=== PATIENT | female | born 1990 | race Caucasian/White ===

== ENCOUNTER 2017-12-31 10:50 | Emergency (ER) | payer OTHER ==
[2017-12-31 11:08] VITALS: BP 136/90
--- NOTE | 2017-12-31 12:24 | UC ---
UC General HPI - HPI Summary HPI Summary: PATIENT WITH A HISTORY OF LUPUS AND FIBROMYALGIA. MOVE TO [place] 2 WEEKS AGO FROM [place]. HAS AN APPOINTMENT WITH DR. CLEMENTE WITH RHEUMATOLOGY AT THE END OF FEBRUARY. STATES SHE HAS HAD INCREASING PAIN AND FATIGUE SINCE ARRIVING TO [place]. SYMPTOMS ARE SO SEVERE THAT SHE IS UNABLE TO FOCUS AT WORK. DURING THE ENCOUNTER PATIENT IS IN TEARS. STATES DR. CLEMENTE CANNOT SEE HER ANY SOONER AND HIS OFFICE ADVISED HER TO COME HERE. SHE HAS NO FEVER, COUGH, CONGESTION, ABDOMINAL PAIN. - History of Current Complaint Chief Complaint: UCGeneralIllness Stated Complaint: CHILLS, NAUSEA, AND VOMITING Time Seen by Provider: 12/31/17 11:27 Hx Obtained From: Patient Hx Last Menstrual Period: 12/31/17 Onset/Duration: Gradual Onset, Lasting Weeks, Still Present Timing: Constant Onset Severity: Moderate Current Severity: Moderate Pain Intensity: 3 - Allergy/Home Medications Allergies/Adverse Reactions: Allergies Allergy/AdvReac Type Severity Reaction Status Date / Time sulfamethoxazole Allergy Rash Verified 12/31/17 11:08 [From Bactrim] trimethoprim [From Bactrim] Allergy Rash Verified 12/31/17 11:08 Home Medications: Home Medications ARIPiprazole TAB* [Abilify TAB*] 20 mg PO DAILY 12/31/17 [History Confirmed ] Adderall Xr 20 mg Capsule 20 mg PO BID 12/31/17 [History Confirmed 12/31/17] Dextroamphetamine/Amphetamine [Adderall Xr 15 mg Capsule] 30 mg PO DAILY [History Confirmed 12/31/17] Gabapentin CAP(*) [Neurontin 300 CAP(*)] 300 mg PO TID 12/31/17 [History Confirmed 12/31/17] Lyrica CAP(*) 100 mg PO TID 12/31/17 [History Confirmed 12/31/17] PMH/Surg Hx/FS Hx/Imm Hx - Additional Past Medical History Additional PMH: LUPUS, FIBROMYALGIA - Surgical History Surgical History: Yes Surgery Procedure, Year, and Place: spinal steroids for degenerative disc disease - Family History Family History: MS, RA - Social History Alcohol Use: None Substance Use Type: None Smoking Status (MU): Never Smoked Tobacco Review of Systems Constitutional: Fatigue, Other - GENERALIZED PAIN ENT: Negative Respiratory: Negative Cardiovascular: Negative Gastrointestinal: Negative All Other Systems Reviewed And Are Negative: Yes Physical Exam Triage Information Reviewed: Yes Appearance: Well-Nourished, Obese, Other: - PT TEARFUL Vital Signs: Initial Vital Signs Temp 98.2 F 12/31/17 11:03 Pulse 79 12/31/17 11:03 Resp 18 12/31/17 11:03 BP 136/90 12/31/17 11:03 Pulse Ox 100 12/31/17 11:03 Vital Signs Reviewed: Yes Eyes: Positive: Conjunctiva Clear ENT: Positive: Hearing grossly normal, Pharynx normal, TMs normal Neck: Positive: Supple, Nontender, No Lymphadenopathy Respiratory Exam: Normal Cardiovascular Exam: Normal Abdomen Description: Positive: Soft Musculoskeletal: Positive: No Edema Neurological: Positive: Alert Psychological: Positive: Age Appropriate Behavior Skin: Negative: rashes Course/Dx - Course Course Of Treatment: WILL TREAT WITH SHORT BURST OF STEROIDS. ENCOURAGED PT TO CALL DR. CLEMENTE AND GET ON A CANCELLATION LIST. TO ED IF SX WORSEN. - Differential Dx - Multi-Symptom Provider Diagnoses: LUPUS FLARE Discharge - Sign-Out/Discharge Documenting (check all that apply): Patient Departure All imaging exams completed and their final reports reviewed: No Studies - Discharge Plan Condition: Stable Disposition: HOME Prescriptions: predniSONE TAB* [Deltasone TAB*] 50 mg PO DAILY #5 tab Patient Education Materials: Lupus Erythematosus (DC), Autoimmune Disease (ED) Forms: *Work Release Referrals: Rudy Clemente MD [Medical Doctor] - 1 Week Additional Instructions: WILL TREAT YOUR LUPUS FLARE WITH PREDNISONE IN HOPES THAT THIS WILL CALM YOUR SYMPTOMS. FOLLOW-UP WITH DR. CLEMENTE SOON POSSIBLE. IBUPROFEN NEEDED FOR DISCOMFORT. NO SIGN OF INFECTION ON EXAM TODAY. SEEK FOLLOW-UP IF YOU DEVELOP FEVER, COUGH, ABDOMINAL PAIN OR ANY OTHER SYMPTOMS CONCERNING FOR UNDERLYING INFECTION. - Billing Disposition and Condition Condition: STABLE Disposition: Home
== END 2017-12-31 11:56 | disposition home or self-care (01) ==
LOC: UCEAST 10:50
DX: Z88.1 Allergy status to other antibiotic agents (principal); M32.9 Systemic lupus erythematosus, unspecified
CPT/HCPCS: 99202; G0463

== ENCOUNTER 2018-06-01 08:44 | Emergency (ER) | payer OTHER ==
--- OUTSIDE RECORDS SUMMARY | 2018-06-01 09:05 | XMS REPORT | Continuity of Care Document ---
:1990 External Reference #:[id number] Author Name Susannah Sauceda Care Team Providers Name Role Phone Sonali Pro MD Primary Care Physician Unavailable Payers Type Date Identification Numbers Payment Provider Subscriber Policy Number: [id number] [employer] Aakash Bhat PayID: [id number] [address] [place] [address] Advance Directives Description No Information Available Problems Description No Information Family History Date Family Member(s) Problem(s) Comments General Rheumatoid Arthritis Father Autoimmune conditions in her aunts and mother Mother Multiple Sclerosis (MS) Social History Type Date Description Comments Sex Unknown ETOH Use Never used alcohol Tobacco Use Start: Unknown Patient has never smoked Smoking Status Reviewed: 05/07/18 Patient has never smoked Exercise Type/Frequency Does not exercise Exercise Type/Frequency She cannot exercise given her chronic pain Allergies, Adverse Reactions, Alerts Date Description Reaction Status Severity Comments 03/11/2018 Bactrim Active Medications Medication Date Status Form Strength Qnty SIG Indications Ordering Provider Nystatin 05/07 Active Ointment [id number] 15gm use B37.9 ofi t/GM between Osvaldo, the breast [employer] twice a day until symptoms resolved Lidoderm 04/15 Active Patches 5% 30uni 1 apply to ts affected Kallie, area 12 M.D. hours on, 12 hours off Ciprofloxacin HCL 03/19 Active Tablets 250mg 10tab 1 twice a s day for 5 Kallie, days M.D. Diflucan 03/19 Active Tablets 150mg 3tabs take one capsule/ta Kallie, blet daily M.D. by mouth for 3 days for a yeast infection Ondansetron 03/17 Active Tablets 4mg 40tab dissolve Dispers s one tablet Kallie, orally M.D. twice daily as needed for nausea. Benlysta 03/16 Active Solution IV Rec Kallie M.D. Aspirin 81 Low Dose 03/11 Active Chewtabs 81mg 60uni Take one ts capsule/ta Kallie, blet daily M.D. by mouth Meloxicam 03/11 Active Tablets 7.5mg 180ta take one M32.9 bs tab twice Kallie, daily as M.D. needed for pain, avoid other nsaids Cyclobenzaprine HCL Active Tablets Unknown Adderall XR Active Caps ER 30mg 1 by mouth Unknown /0000 24HR every day Abilify Active Tablets 20mg 1 by mouth Unknown /0000 every day Gabapentin Active Capsules 300mg 1 by mouth Unknown /0000 three times a day Trintellix Active Tablets 10mg 1 by mouth Unknown /0000 every day Magnesium Active Tablets 250mg Unknown /0000 Vitamin D Active Tablets 1000Unit by mouth Unknown /0000 everyday Klonopin Active Tablets 1mg tid Turmeric Active Capsules 400mg Unknown /0000 Iron Active Tablets 325(65Fe) 1 by mouth Unknown /0000 mg every day Restoril Active Capsules 15mg once at at Unknown /0000 bedtime for insomnia Lyrica Active Capsules 100mg 90cap Take 1 s Capsule By Kallie, Mouth 3 M.D. Times A Day Zofran Odt 03/16 Hx Tablets 4mg 40tab take one Dispers s capsule/ta Kallie, - blet twice M.D. 03/17 daily mouth as needed for nausea B-12 Hx Tablets 1000mcg Unknown / - 03/11 Velivet Hx Tablets 0.1/0.125 Unknown /0000 /0.15 - -0.025 mg 03/11 Hydroxychloroquine Hx Tablets 200mg take one Unknown tablet by - mouth 04/15 twice day Ibuprofen Hx Tablets 200mg Unknown / - 04/15 Fludrocortisone Hx Tablets 0.1mg 1 by mouth Unknown Acetate 0000 every - morning 03/11 Prazosin HCL Hx Capsules 2mg take 2 Unknown capsules - by mouth 03/11 at bedtime Zofran Hx Tablets 4mg Unknown / - 03/16 Immunizations CPT Code Status Date Vaccine Reaction Lot # [id number] Given 05/07/2018 Pneumococcal Conjugate no immediate reaction [id number] Vaccine 13 Valent For noted Intramuscular Use Vital Signs Date Vital Result Comment 05/07/2018 9:24am Height 65 inches 5'5" Weight 288.38 lb Heart Rate 102 /min BP Systolic Sitting 112 mmHg BP Diastolic Sitting 78 mmHg Pain Level 7 O2 % BldC Oximetry 98 % BMI (Body Mass Index) 48.0 kg/m2 04/15/2018 9:37am Height 65 inches 5'5" Weight 288.50 lb Heart Rate 109 /min BP Systolic Sitting 106 mmHg BP Diastolic Sitting 72 mmHg Pain Level 8 O2 % BldC Oximetry 99 % BMI (Body Mass Index) 48.0 kg/m2 03/11/2018 10:16am Height 65 inches 5'5" Weight 293.25 lb Heart Rate 80 /min BP Systolic Sitting 100 mmHg BP Diastolic Sitting 70 mmHg Respiratory Rate 14 /min Pain Level 8 BMI (Body Mass Index) 48.8 kg/m2 Results Test Date Facility Test Result H/L Range Note Laboratory test 04/16/2018 [facility] Erythrocyte Sed 33 mm/Hr High 0-[address] [place] [address] [phone] Comp Metabolic 04/16/2018 [facility] Sodium 136 mmol/L N 135- [address] [place] [address] [phone] Potassium 3.9 mmol/L N 3.5-5.0 Chloride 103 mmol/L N 101-111 Co2 Carbon Dioxide 28 mmol/L N 22-32 Anion Gap 5 mmol/L N 2-11 Glucose 87 mg/dL N 70-100 Blood Urea Nitrogen 12 mg/dL N 6-24 Creatinine 0.75 mg/dL N 0.51-0.95 BUN/Creatinine Ratio 16.0 N 8-20 Calcium 9.2 mg/dL N 8.6-10.3 Total Protein 6.9 g/dL N 6.4-8.9 Albumin 4.3 g/dL N 3.2-5.2 Globulin 2.6 g/dL N 2-4 Albumin/Globulin Ratio 1.7 N 1-3 Total Bilirubin 0.30 mg/dL N 0.2-1.0 Alkaline Phosphatase 86 U/L N 34-104 Alt 18 U/L N 7-52 Ast 16 U/L N 13-39 Egfr Non- 91.4 >60 Egfr 110.5 >60 1 Laboratory test 04/16/2018 [facility] C Reactive 5.57 mg/L N < 8.[address] [place] [address] [phone] CBC Auto Diff 04/16/2018 [facility] White Blood 6.7 N 3.5- 10.[address] Count 10^3/[place] [address] [phone] Red Blood Count 4.62 10^6/uL N 4.00-5.40 Hemoglobin 13.4 g/dL N 12.0-16.0 Hematocrit 41 % N 35-47 Mean Corpuscular Volume 88 fL N 80-97 Mean Corpuscular Hemoglobin 29 pg N 27-31 Mean Corpuscular HGB Conc 33 g/dL N 31-36 Red Cell Distribution Width 14 % N 10.5-15 Platelet Count 281 10^3/uL N 150-450 Mean Platelet Volume 8.9 fL N 7.4-10.4 Abs Neutrophils 4.3 10^3/uL N 1.5-7.7 Abs Lymphocytes 1.7 10^3/uL N 1.0-4.8 Abs Monocytes 0.5 10^3/uL N 0-0.8 Abs Eosinophils 0.2 10^3/uL N 0-0.6 Abs Basophils 0 10^3/uL N 0-0.2 Abs Nucleated RBC 0 10^3/uL Granulocyte % 63.9 % Lymphocyte % 25.0 % Monocyte % 7.0 % Eosinophil % 3.6 % Basophil % 0.5 % Nucleated Red Blood Cells % 0.1 Comp Metabolic Panel 04/02/2018 [facility] Sodium 136 mmol/L N 135-[address] [place] [address] [phone] Potassium 4.2 mmol/L N 3.5-5.0 Chloride 106 mmol/L N 101-111 Co2 Carbon Dioxide 24 mmol/L N 22-32 Anion Gap 6 mmol/L N 2-11 Glucose 79 mg/dL N 70-100 Blood Urea Nitrogen 15 mg/dL N 6-24 Creatinine 0.75 mg/dL N 0.51-0.95 BUN/Creatinine Ratio 20.0 N 8-20 Calcium 9.1 mg/dL N 8.6-10.3 Total Protein 6.4 g/dL N 6.4-8.9 Albumin 3.9 g/dL N 3.2-5.2 Globulin 2.5 g/dL N 2-4 Albumin/Globulin Ratio 1.6 N 1-3 Total Bilirubin 0.20 mg/dL N 0.2-1.0 Alkaline Phosphatase 79 U/L N 34-104 Alt 17 U/L N 7-52 Ast 17 U/L N 13-39 Egfr Non- 91.4 >60 Egfr 110.5 >60 2 Laboratory test 04/02/2018 [facility] Erythrocyte Sed 31 mm/Hr High 0-[address] [place] [address] [phone] CBC Auto Diff 04/02/2018 [facility] White Blood 7.4 N 3.5- 10.[address] Count 10^3/[place] [address] [phone] Red Blood Count 4.34 10^6/uL N 4.00-5.40 Hemoglobin 12.7 g/dL N 12.0-16.0 Hematocrit 38 % N 35-47 Mean Corpuscular Volume 88 fL N 80-97 Mean Corpuscular Hemoglobin 29 pg N 27-31 Mean Corpuscular HGB Conc 33 g/dL N 31-36 Red Cell Distribution Width 14 % N 10.5-15 Platelet Count 263 10^3/uL N 150-450 Mean Platelet Volume 8.7 fL N 7.4-10.4 Abs Neutrophils 4.5 10^3/uL N 1.5-7.7 Abs Lymphocytes 2.0 10^3/uL N 1.0-4.8 Abs Monocytes 0.6 10^3/uL N 0-0.8 Abs Eosinophils 0.2 10^3/uL N 0-0.6 Abs Basophils 0.1 10^3/uL N 0-0.2 Abs Nucleated RBC 0 10^3/uL Granulocyte % 61.1 % Lymphocyte % 27.5 % Monocyte % 7.6 % Eosinophil % 3.0 % Basophil % 0.8 % Nucleated Red Blood Cells % 0 Laboratory test 04/02/2018 [facility] C Reactive 5.91 mg/L N < 8.[address] [place] [address] [phone] Laboratory test 03/11/2018 [facility] Complement C3 136 mg/dL 75 - [address] [place] [address] [phone] Complement C4 26 mg/dL 14 - 40 4 Erythrocyte Sed Rate 30 mm/Hr High 0-14 5 C Reactive Protein 5.28 mg/L N <8.01 6 Neutrophil Cytoplasmic 03/11/2018 [facility] C-Anca Negative Negative AB [address] [place] [address] [phone] P-Anca Negative Negative 7 Alkaline Phos 03/11/2018 [facility] Alkaline 85 U/L 35 - 104 Isoenzymes [address] [facility] [place] [address] [phone] Alp Liver 1% 70.8 % 27.8-76.3 Alp Liver 1 60.2 IU/L 16.2-70.2 Alp Liver 2% 1.9 % 0.0-8.0 Alp Liver 2 1.6 IU/L 0.0-5.8 Alp Bone % 27.3 % 19.1-67.7 Alp Bone 23.2 IU/L 12.1-42.7 Alp Intestine % 0.0 % 0.0-20.6 Alp Intestine 0.0 IU/L 0.0-11.0 Alp Placental NotPresent 8 CBC Auto Diff 03/11/2018 [facility] White Blood 7.6 10^3/uL N 3.5-10.[address] [place] [address] [phone] Red Blood Count 4.57 10^6/uL N 4.00-5.40 Hemoglobin 13.3 g/dL N 12.0-16.0 Hematocrit 40 % N 35-47 Mean Corpuscular Volume 88 fL N 80-97 Mean Corpuscular Hemoglobin 29 pg N 27-31 Mean Corpuscular HGB Conc 33 g/dL N 31-36 Red Cell Distribution Width 14 % N 10.5-15 Platelet Count 259 10^3/uL N 150-450 Mean Platelet Volume 8.7 fL N 7.4-10.4 Abs Neutrophils 5.4 10^3/uL N 1.5-7.7 Abs Lymphocytes 1.6 10^3/uL N 1.0-4.8 Abs Monocytes 0.5 10^3/uL N 0-0.8 Abs Eosinophils 0.1 10^3/uL N 0-0.6 Abs Basophils 0 10^3/uL N 0-0.2 Abs Nucleated RBC 0 10^3/uL Granulocyte % 71.3 % Lymphocyte % 21.5 % Monocyte % 6.1 % Eosinophil % 0.8 % Basophil % 0.3 % Nucleated Red Blood Cells % 0.1 Comp Metabolic Panel 03/11/2018 [facility] Sodium 139 mmol/L N 135-145 [address] [place] [address] [phone] Potassium 4.0 mmol/L N 3.5-5.0 Chloride 106 mmol/L N 101-111 Co2 Carbon Dioxide 28 mmol/L N 22-32 Anion Gap 5 mmol/L N 2-11 Glucose 73 mg/dL N 70-100 Blood Urea Nitrogen 13 mg/dL N 6-24 Creatinine 0.81 mg/dL N 0.51-0.95 BUN/Creatinine Ratio 16.0 N 8-20 Calcium 9.2 mg/dL N 8.6-10.3 Total Protein 6.4 g/dL N 6.4-8.9 Albumin 4.1 g/dL N 3.2-5.2 Globulin 2.3 g/dL N 2-4 Albumin/Globulin Ratio 1.8 N 1-3 Total Bilirubin 0.20 mg/dL N 0.2-1.0 Alkaline Phosphatase 78 U/L N 34-104 Alt 13 U/L N 7-52 Ast 15 U/L N 13-39 Egfr Non- 83.6 >60 Egfr 101.2 >60 9 Urinalysis Profile 03/11/2018 [facility] Urine Color Yellow [address] [place] [address] [phone] Urine Appearance Cloudy Urine Specific [place] 1.004 Low 1.010-1.030 Urine pH 6.0 N 5-9 Urine Urobilinogen Negative Negative Urine Ketones Negative Negative Urine Protein Negative Negative Urine Leukocytes Trace Abnormal Negative Urine Blood Negative Negative Urine Nitrite Positive Abnormal Negative Urine Bilirubin Negative Negative Urine Glucose Negative Negative Urine White Blood Cell 1+(6-10/hpf) Abnormal Absent Urine Red Blood Cell Absent Absent Urine Bacteria 2+ Abnormal Absent Urine Squamous Epithelial Cell Present Abnormal Absent Laboratory test 03/11/2018 [facility] Mitochondrial AB AMA <0.1 U [address] M2 Igg [place], [place] [id number] [phone] Creatine Kinase(CK) 95 U/L N 10-223 11 T3 Free 3.80 pg/mL N 2.5-3.9 12 Vitamin D Total 25(Oh) 49.2 ng/mL N 20-50 13 Lupus 03/11/2018 [facility] Prothrombin 10.2 sec Abnormal 14 Anticoagulant AB [address] Time(Lac) [place], [place] [id number] [phone] Lac Inr 0.9 Lac Aptt 36 sec 26 - 36 Lac DRVVT Screen Ratio 1.1 ratio 0.0 - 1.1 Lupus Anticoagulant Interpreta See Comment 15 Beta 2 Glycoprotein 03/11/2018 [facility] Beta 2 <9.4 U/mL 16 I Abs [address] [place] [address] [phone] Beta 2 Glycoprotein IgM <9.4 U/mL 17 Urine Culture And 03/11/2018 [facility] Urine SEE RESULT [address] Culture BELOW [place], [place] [address] [phone] Protein 03/11/2018 [facility] Total 6.7 g/dL 6.3 - Electrophoresis [address] Protein(Pep) 7.9 [place], [place] [id number] [phone] Albumin 3.4 g/dL 3.4-4.7 Alpha-1 Globulin 0.2 g/dL 0.1-0.3 Alpha-2 Globulin 0.9 g/dL 0.6-1.0 Beta Globulin 1.0 g/dL 0.7-1.2 Gamma Globulin 1.1 g/dL 0.6-1.6 Albumin/Globulin Ratio 1.02 Impression See Comment 19 1 Because ethnic data is not always readily available, this report includes an eGFR for both -Americans and non- Americans. The National Kidney Disease Education Program (NKDEP) does not endorse the use of the MDRD equation for patients that are not between the ages of 18 and 70, are , have extremes of body size, muscle mass, or nutritional status, or are non- or non-. According to the National Kidney Foundation, irrespective of diagnosis, the stage of the disease is based on the level of kidney function: Stage Description GFR(mL/min/1.73 m(2)) 1 Kidney damage with normal or decreased GFR 90 2 Kidney damage with mild decrease in GFR 60-89 3 Moderate decrease in GFR 30-59 4 Severe decrease in GFR 15-29 5 Kidney failure <15 (or dialysis) 2 Because ethnic data is not always readily available, this report includes an eGFR for both -Americans and non- Americans. The National Kidney Disease Education Program (NKDEP) does not endorse the use of the MDRD equation for patients that are not between the ages of 18 and 70, are , have extremes of body size, muscle mass, or nutritional status, or are non- or non-. According to the National Kidney Foundation, irrespective of diagnosis, the stage of the disease is based on the level of kidney function: Stage Description GFR(mL/min/1.73 m(2)) 1 Kidney damage with normal or decreased GFR 90 2 Kidney damage with mild decrease in GFR 60-89 3 Moderate decrease in GFR 30-59 4 Severe decrease in GFR 15-29 5 Kidney failure <15 (or dialysis) 3 Test Performed by: [address] [place] [address] 4 Test Performed by: [facility] [address] [place] [address] 5 Please check labs this week 6 Please check labs this week 7 Negative for cANCA and pANCA patterns by immunofluorescence. ADDITIONAL INFORMATION This test was developed and its performance characteristics determined by [facility] in a manner consistent with CLIA requirements. This test has not been cleared or approved by the U.S. Food and Drug Administration. Test Performed by: [facility] [address] [id number] 8 REFERENCE VALUE Not present Test Performed by: [facility] - [address] [address] 9 Because ethnic data is not always readily available, this report includes an eGFR for both -Americans and non- Americans. The National Kidney Disease Education Program (NKDEP) does not endorse the use of the MDRD equation for patients that are not between the ages of 18 and 70, are , have extremes of body size, muscle mass, or nutritional status, or are non- or non-. According to the National Kidney Foundation, irrespective of diagnosis, the stage of the disease is based on the level of kidney function: Stage Description GFR(mL/min/1.73 m(2)) 1 Kidney damage with normal or decreased GFR 90 2 Kidney damage with mild decrease in GFR 60-89 3 Moderate decrease in GFR 30-59 4 Severe decrease in GFR 15-29 5 Kidney failure <15 (or dialysis) 10 REFERENCE VALUE <0.1 (Negative) Test Performed by: [facility] [address] [place] [address] 11 Please check labs this week 12 Please check labs this week 13 Please check labs this week 14 REFERENCE VALUE 10.3 - 12.8 15 No evidence of a lupus-like anticoagulant based on results of Prothrombin Time (PT), Activated Partial Thromboplastin Time (APTT), and Dilute Russ[place] Viper Venom Time (DRVVT). Interpretation not reviewed by physician. Test Performed by: [facility] - [address] [address] 16 REFERENCE VALUE <15.0 (Negative) 17 REFERENCE VALUE <15.0 (Negative) Test Performed by: [address] [address] 18 SEE RESULT BELOW Name: AAKASH BHAT : [address]: Rudy Arreguin MD Acct: [id number] Unit: [id number] AGE: 27 Location: LAB Re03/11/18 SEX: F Status: REG REF SPEC: [id number] CANDACE: 03/11/181141 [facility] DR: Rudy Arreguin MD REQ: [id number] RECD: 03/11/18120 STATUS: COMP _ SOURCE: URINE SPDES: ORDERED: Urine Culture Procedure Result Reported Site Urine Culture Final 03/13/18- 0806 ML Organism 1 ESCHERICHIA COLI [place] Count >100,000 (Many) CFU/ML 1. ESCHERICHIA COLI M.I.C. RX --------- ------ Ampicillin 4 S Cefazolin <=4 S Cefepime <=1 S Ceftriaxone <=1 S Ciprofloxacin <=0.25 S Gentamicin <=1 S Levofloxacin <=0.12 S Meropenem <=0.25 S Nitrofurantoin <=16 S Tetracycline <=1 S Pipercillin/Tazobactam <=4 S Trimethoprim/Sulfamethoxazole <=20 S Amoxicillin/Clavulanic Acid <=2 S Aztreonam <=1 S Contact the Microbiology Department for any additional antibiotic reporting. * - Main Lab . END OF REPORT DEPARTMENT OF PATHOLOGY, [address] [place] [address] Atul Merrill M.D. Director [facility] # [id number] RESULT: No apparent monoclonal protein on serum electrophoresis. 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 erythematosus, unspecified R74.8 Abnormal levels of other serum enzymes Z79.899 Other jail (current) drug therapy M79.7 Fibromyalgia Plan of Treatment Future Appointment(s):06/16/2018 10:20 am - Rudy Arrgeuin M.D. at [facility]05/07/2018 - Bela Riley, FNPM32.9 Systemic lupus erythematosus , unspecifiedComments:We discussed that it may take up to 3 month for Benlysta to take effect.We do expect that you will feel a lot better once your condition is under control.For now I recommend a healthy diet and a low grade daily exercise as tolerated.Call the office if any change in your condition.Follow up: keep f/u with Dr Bradley37.9 Candidiasis, unspecifiedNew Medication:Nystatin [id number] Unit/GM - use between the breast twice a day until symptoms resolvedComments:Start using ointment 2x daily. The rash should resolve in a week or so. Please call if this is not the case or if your symptoms worsen.M54.5 Low back painNew Therapy:Physical TherapyComments:I am giving you a set of exercises o do daily to keep your back [id number] Pain in unspecified kneeZ79.899 Other jail (current) drug therapyComments:Please call if have sign or symptoms of infection.Z23 Encounter for immunization
[2018-06-01 11:53] LABS: Urine Appearance Clear; Urine Bacteria Absent (Absent); Urine Bilirubin Negative (Negative); Urine Blood 1+ (Negative); Urine Color Straw; Urine Glucose Negative (Negative); Urine Ketones Negative (Negative); Urine Nitrite Negative (Negative); Urine Protein Negative (Negative); Urine Red Blood Cell Trace(0-2/hpf) (Absent); Urine Specific Gravity 1.004 (1.010-1.030); Urine Squamous Epithelial Cell Present (Absent); Urine Urobilinogen Negative (Negative); Urine White Blood Cell Absent (Absent)
[2018-06-01] MEDS ORDERED: HYDROmorphone INJ1* 1 MG/ML SYRINGE IM ONE (12:10)
--- NOTE | 2018-06-01 12:10 | ED ---
Back Pain - HPI Summary HPI Summary: Pt is a 27 y/o female who presents to the ED c/o back pain. She has had lower back pain since last night, rated 10/10 in severity. Pt has a known bulging disc between L4 and L5, and states the pain feels like its below L5. She reports nerve pain radiating to her upper thighs. She denies any injury to the area, or urinary symptoms. Pt took Meloxicam, Gabapentin, Lyrica, and ASA, and used a Lidoderm patch to the area, but neither relieved her pain. PMHx Lupus. She has used Flexeril in the past with pain relief. Pt has an appointment with Dr. Pro tomorrow. - History of Current Complaint Chief Complaint: EDBackInjuryPain Stated Complaint: BACK PAIN Time Seen by Provider: 06/01/18 11:06 Hx Obtained From: Patient Hx Last Menstrual Period: 04/07/18 Onset/Duration: Sudden Onset, Lasting Days - Last night, Still Present Timing: Constant Back Pain Location: Is Discrete @ - low back Severity Currently: Severe Pain Intensity: 10 Pain Scale Used: 0-10 Numeric Aggravating Symptom(s): Movement Alleviating Symptom(s): Nothing Associated Signs And Symptoms: Positive: Negative Related History: Similar Episode Dx As - bulge between L4 and L5 - Allergies/Home Medications Allergies/Adverse Reactions: Allergies Allergy/AdvReac Type Severity Reaction Status Date / Time sulfamethoxazole Allergy Mild Rash Verified 06/01/18 09:00 [From Bactrim] trimethoprim [From Bactrim] Allergy Mild Rash Verified 06/01/18 09:00 PMH/Surg Hx/FS Hx/Imm Hx Endocrine/Hematology History: Reports: Autoimmune Disease - Lupus Musculoskeletal History: Reports: Hx Back Problems - bulge between L4 and L5 - Cancer History Cancer Type, Location and Year: lupus fibromyalgia - Surgical History Surgery Procedure, Year, and Place: spinal steroids for degenerative disc disease Infectious Disease History: No Infectious Disease History: Denies: Traveled Outside the [place] in Last 30 Days - Family History Known Family History: Positive: Other - Lupus Family History: MS, RA - Social History Alcohol Use: None Hx Substance Use: No Substance Use Type: Reports: None Hx Tobacco Use: No Smoking Status (MU): Never Smoked Tobacco Review of Systems Genitourinary: Negative Positive: Myalgia - low back, radiating to her thighs All Other Systems Reviewed And Are Negative: Yes Physical Exam - Summary Physical Exam Summary: Appearance: Well appearing, no pain distress Skin: warm, dry, reflects adequate perfusion Head/face: normal Eyes: EOMI, MEREDITH ENT: mucous membranes moist Neck: supple, non-tender Respiratory: CTA, breath sounds present Cardiovascular: RRR, pulses symmetrical Abdomen: non-tender, soft Bowel Sounds: present Musculoskeletal: strength/ROM intact, tenderness to right piriformus and right lumbar musculature, Lidoderm patch applied to the area Neuro: sensory motor intact, A&Ox3, 2+ patellar DTRs, nl saddle and LE sensations, nl gait, no incontinence Triage Information Reviewed: Yes Vital Signs On Initial Exam: Initial Vitals Temp Pulse Resp BP Pulse Ox 96.9 F 76 17 129/95 100 06/01/18 08:57 06/01/18 08:57 06/01/18 08:57 06/01/18 08:57 06/01/18 08:57 Vital Signs Reviewed: Yes Diagnostics - Vital Signs Vital Signs Temp Pulse Resp BP Pulse Ox 06/01/18 08:57 96.9 F 76 17 129/95 100 - Laboratory Lab Results: Lab Results 06/01/18 Range/Units 11:25 Urine Color Straw Urine Appearance Clear Urine pH 6.0 (5-9) Ur Specific [place] 1.004 L (1.010-1.030) Urine Protein Negative (Negative) Urine Ketones Negative (Negative) Urine Blood 1+ A (Negative) Urine Nitrate Negative (Negative) Urine Bilirubin Negative (Negative) Urine Urobilinogen Negative (Negative) Ur Leukocyte Esterase Negative (Negative) Urine WBC (Auto) Absent (Absent) Urine RBC (Auto) Trace(0-2/hpf) (Absent) Ur Squamous Epith Cells Present A (Absent) Urine Bacteria Absent (Absent) Urine Glucose Negative (Negative) Lab Statement: Any lab studies that have been ordered have been reviewed, and results considered in the medical decision making process. Back Pain Course/Dx - Diagnoses Provider Diagnoses: Chronic back pain, Lumbar radiculopathy Discharge - Sign-Out/Discharge Documenting (check all that apply): Patient Departure - Discharge Patient Received Moderate/Deep Sedation with Procedure: No - Discharge Plan Condition: Stable Disposition: HOME Prescriptions: Cyclobenzaprine TAB* [Flexeril 10 MG TAB*] 10 mg PO TID PRN #20 tab PRN Reason: muscle pain/back pain Patient Education Materials: Sciatica (ED), Chronic Back Pain (DC), Piriformis Syndrome (ED) Referrals: Sonali Pro MD [Primary Care Provider] - Anahy Rubin MD [Medical Doctor] - Additional Instructions: Follow-up with your family doctor tomorrow as scheduled. Take all prescribed medications. Return with difficulty with bowel/bladder, numbness/weakness, worse, new symptoms or other concerns. - Attestation Statements Document Initiated by Scribe: Yes Documenting Scribe: Gladys Sutton Provider For Whom Scribe is Documenting (Include Credential): Andres Cortez MD Scribe Attestation: Gladys Preciado, scribed for Andres Cortez MD on 06/01/18 at 1231. Status of Scribe Document: Ready
[2018-06-01 12:45] VITALS: BP 134/96
== END 2018-06-01 12:52 | disposition home or self-care (01) ==
LOC: ED 08:44
DX: M54.9 Dorsalgia, unspecified (principal); M54.16 Radiculopathy, lumbar region; G89.29 Other chronic pain; M32.9 Systemic lupus erythematosus, unspecified; M79.7 Fibromyalgia
CPT/HCPCS: 81003; 81015; 96372; 99282; J1170

== ENCOUNTER 2018-08-13 19:16 | Emergency (ER) | payer OTHER ==
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
[2018-08-13] MEDS ORDERED: Lorazepam PYXIS KEY PRN (20:13)
[2018-08-13] MEDS ORDERED: LORazepam INJ* 2 MG/ML 1 ML VIAL IM ONE (20:13)
[2018-08-13] MEDS ORDERED: Lorazepam PYXIS KEY ONE (20:17)
--- NOTE | 2018-08-13 20:24 | ED ---
Neurological HPI - HPI Summary HPI Summary: 28 year old female presents to the emergency department after experiencing an episode of jaw tightness and facial paralysis while at her therapist's office earlier today. She states this last about 5 minutes and after that she was having difficulty speaking. She also reports a right sided headache and nausea. Pt states she has a history of seizures as a teenager and that her doctors "couldn't figure out why". During the encounter the pt is tearful, repeatedly saying "I'm scared" and "I want to go home". She has a history of PTDS, anxiety , lupus, and arthritis. She states she used to be on klonopin for her anxiety but is not taking anything at the moment for it. She also states that she is having a hard time controlling her anxiety at the moment. She denies any numbness, tingling, LOC, trauma, vomiting, incontinence, confusion, vision changes, chest pain, and SOB. - History of Current Complaint Chief Complaint: EDAltMentalStatus Stated Complaint: "I HAD A SEIZURE, THINKS I HAD A STROKE" PER PT Time Seen by Provider: 08/13/18 19:55 Hx Obtained From: Patient Hx Last Menstrual Period: 04/07/18 Pain Intensity: 6 - Allergy/Home Medications Allergies/Adverse Reactions: Allergies Allergy/AdvReac Type Severity Reaction Status Date / Time sulfamethoxazole Allergy Mild Rash Verified 08/06/18 16:30 [From Bactrim] trimethoprim [From Bactrim] Allergy Mild Rash Verified 08/06/18 16:30 PMH/Surg Hx/FS Hx/Imm Hx Previously Healthy: No - lupus, anxiety, PTSD Musculoskeletal History: Reports: Hx Back Problems - bulge between L4 and L5 Psychiatric History: Reports: Hx Anxiety - Cancer History Cancer Type, Location and Year: lupus fibromyalgia - Surgical History Surgery Procedure, Year, and Place: spinal steroids for degenerative disc disease Infectious Disease History: No Infectious Disease History: Denies: Traveled Outside the [place] in Last 30 Days - Family History Known Family History: Positive: Other - Lupus Family History: MS, RA - Social History Lives: Alone Alcohol Use: None Hx Substance Use: No Substance Use Type: Reports: None Hx Tobacco Use: No Smoking Status (MU): Never Smoked Tobacco Review of Systems Negative: Fever, Chills, Fatigue Eyes: Negative Negative: Photophobia, Blurred Vision, Diplopia ENT: Negative Negative: Sore Throat, Ear Ache Positive: Palpitations - anxiety induced. Negative: Chest Pain Respiratory: Negative Negative: Shortness Of Breath, Cough Positive: Nausea. Negative: Abdominal Pain, Vomiting, Diarrhea Musculoskeletal: Negative Negative: Myalgia, Decreased ROM Skin: Negative Negative: Rash Neurological: Other - 5 minute episode of jaw tightness and paralysis Positive: Headache, Slurred Speech - temporatily after parylitic episode, resolved now. Negative: Weakness, Paresthesia, Numbness, Syncope Positive: Anxious, Other - PTSD All Other Systems Reviewed And Are Negative: Yes Physical Exam Triage Information Reviewed: Yes Vital Signs On Initial Exam: Initial Vitals Temp Pulse Resp BP Pulse Ox 98.5 F 93 22 138/104 99 08/13/18 19:30 08/13/18 19:30 08/13/18 19:30 08/13/18 19:30 08/13/18 19:30 Vital Signs Reviewed: Yes Appearance: Positive: Well-Appearing - Tearful and anxious, Well-Nourished, Obese Skin: Positive: Warm, Skin Color Reflects Adequate Perfusion, Dry Head/Face: Positive: Normal Head/Face Inspection Eyes: Positive: Normal, EOMI, MEREDITH ENT: Positive: Normal ENT inspection, Hearing grossly normal, Uvula midline Neck: Positive: Supple, Nontender Respiratory/Lung Sounds: Positive: Clear to Auscultation, Breath Sounds Present Cardiovascular: Positive: Normal, RRR, Pulses are Symmetrical in both Upper and Lower Extremities Abdomen Description: Positive: Nontender Neurological: Positive: Normal, Sensory/Motor Intact, Alert, Oriented to Person Place, Time, Reflexes Intact, Normal Gait, Facial Symmetry, Speech Normal. Negative: Receptive Aphasia, Expressive Aphasia, Facial Droop, Slurred Speech, Dysphagia Psychiatric: Positive: Anxious Diagnostics - Vital Signs Vital Signs Temp Pulse Resp BP Pulse Ox 08/13/18 19:30 98.5 F 93 22 138/104 99 - Laboratory Lab Statement: Any lab studies that have been ordered have been reviewed, and results considered in the medical decision making process. Course/Dx - Course Course Of Treatment: Pt presents after experiencing a 5 minute episode of jaw tightness and paralysis. 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 During the encounter the pt is tearful and anxious. She denies any LOC, incontinence, or any neurological deficits. Physical exam was unremarkable. Pt was given 2mg of ativan IM for anxiety and reports improvement. Pt to follow up with primary care the next morning for further treatment of anxiety and possible referral to neurology/EEG. Assessment/Plan: Patient was seen in conjunction with the physician assistant manager quality management student. The physician assistant manager quality management student performed the physical exam as the patient would not allow me being a male to examine her. She becomes hysterical with men in the room. She was treated for anxiety and will follow-up with her counselors. - Differential Dx Differential Diagnoses Neuro: Positive: Anxiety, Silver's Palsy, Migraine, Seizure Disorder - Diagnoses Provider Diagnoses: Nonepileptic episode, Anxiety Discharge - Sign-Out/Discharge Documenting (check all that apply): Patient Departure Patient Received Moderate/Deep Sedation with Procedure: No - Discharge Plan Condition: Improved Disposition: HOME Patient Education Materials: Generalized Anxiety Disorder (ED), Nonepileptic Seizures (ED) Referrals: Sonali Pro MD [Primary Care Provider] - Additional Instructions: Call in the Morning to schedule appointment with her primary care physician. They can schedule you for an EEG. Do not drive. Return if worse, new symptoms or other concerns. Take all medications as prescribed. - Billing Disposition and Condition Condition: IMPROVED Disposition: Home - Attestation Statements Document Initiated by Asifibe: No
[2018-08-13 20:25] VITALS: BP 146/96
== END 2018-08-13 20:24 | disposition home or self-care (01) ==
LOC: ED 19:16
DX: G40.409 Other generalized epilepsy and epileptic syndromes, not intractable, without status epilepticus (principal); F41.9 Anxiety disorder, unspecified
CPT/HCPCS: 96372; 96374; 96375; 99282; J2060

== ENCOUNTER 2018-09-04 09:31 | Emergency (ER) | payer OTHER ==
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
[2018-09-04 13:52] LABS: ABS Eosinophils 0.4 10^3/ul (0-0.6); ABS Lymphocytes 1.5 10^3/ul (1.0-4.8); ABS Monocytes 0.8 10^3/ul (0-0.8); ABS Neutrophils 3.1 10^3/ul (1.5-7.7); Eosinophil % 7.1 %; Hematocrit 37 % (35-47); Hemoglobin 12.4 g/dL (12.0-16.0); Lymphocyte % 25.2 %; Mean Corpuscular HGB Conc 34 g/dL (31-36); Mean Corpuscular Hemoglobin 29 pg (27-31); Mean Corpuscular Volume 87 fL (80-97); Mean Platelet Volume 8.2 fL (7.4-10.4); Platelet Count 266 10^3/uL (150-450); Red Blood Count 4.28 10^6 /uL (3.70-4.87); Red Cell Distribution Width 14 % (10.5-15); White Blood Count 5.8 10^3/uL (3.5-10.8)
[2018-09-04 14:11] LABS: HCG Pregnancy < 0.60 mIU/mL
[2018-09-04 14:12] LABS: ALT 19 U/L (7-52); AST 17 U/L (13-39); Albumin 3.6 g/dL (3.2-5.2); Albumin/Globulin Ratio 1.3 (1-3); Alkaline Phosphatase 79 U/L (34-104); Anion Gap 4 mmol/L (2-11); Blood Urea Nitrogen 8 mg/dL (6-24); C Reactive Protein 13.48 mg/L (<8.01); CO2 Carbon Dioxide 26 mmol/L (22-32); Chloride 110 mmol/L (101-111); EGFR African American 101.9 (>60); EGFR Non-African American 84.2 (>60); Globulin 2.8 g/dL (2-4); Glucose 75 mg/dL (70-100); Potassium 4.1 mmol/L (3.5-5.0); Sodium 140 mmol/L (135-145); Total Protein 6.4 g/dL (6.4-8.9)
[2018-09-04 14:22] LABS: Urine Appearance Cloudy; Urine Bilirubin Negative (Negative); Urine Blood Negative (Negative); Urine Color Straw; Urine Glucose Negative (Negative); Urine Ketones Negative (Negative); Urine Nitrite Negative (Negative); Urine Protein Negative (Negative); Urine Specific Gravity 1.003 (1.010-1.030); Urine Urobilinogen Negative (Negative)
--- NOTE | 2018-09-04 14:27 | ED ---
Abdominal Pain/Female - HPI Summary HPI Summary: A 28 y/o F presents to ED with sharp, stabbing RUQ pain onset last night. At bedside, she rates her pain as 8 out of 10. Aggravating factors: inhalation. She 's been breathing shallowly due to the pain. Associated sx: fever (102 F) 3 - 4 days ago which has resolved. Denies cough, vomiting, urinary sx. She also notes a skin infection above her groin. She has lupus and takes immunosuppressants. She started Benlysta in Mar 2018. She received the most recent dose yesterday; they were unaware of her recent fever. She sees Dr. Arreguin, rheumatology. She last ate (Cheetos) 1-2 hours ago around 1235. Vitals at bedside: Not on monitor. Home Medications Medication Instructions Recorded Confirmed Type ARIPiprazole TAB* [Abilify TAB*] 20 mg PO DAILY 12/31/17 09/03/18 History Adderall Xr 20 mg Capsule 30 mg PO BID 12/31/17 09/03/18 History Dextroamphetamine/Amphetamine 30 mg PO DAILY 12/31/17 09/03/18 History [Adderall Xr 15 mg Capsule] Gabapentin CAP(*) [Neurontin 300 300 mg PO TID 12/31/17 09/03/18 History CAP(*)] Lyrica CAP(*) 100 mg PO TID 12/31/17 09/03/18 History Cholecalciferol TAB* [Vitamin D 1,000 unit PO DAILY 03/19/18 09/03/18 History TAB*] Ferrous Sulfate [Iron High-Potency] 325 mg PO DAILY 03/19/18 09/03/18 History Magnesium Oxide [Magnesium] 250 mg PO DAILY 03/19/18 09/03/18 History Ondansetron HCl [Zofran 4 MG TAB] 4 mg PO Q6H PRN 03/19/18 09/03/18 History Turmeric 400 mg PO DAILY 03/19/18 09/03/18 History Vortioxetine Hydrobromide 10 mg PO DAILY 03/19/18 09/03/18 History [Brintellix] ALPRAZolam TAB* [Xanax TAB*] 0.25 mg PO TID PRN #15 tab MDD 3 04/27/18 09/03/18 Rx Belimumab [Benlysta] 1 dose IV MONTHLY 04/27/18 09/03/18 History Lidocaine PATCH 5%* [Lidoderm 5% 1 patch .ROUTE DAILY 04/27/18 09/03/18 History Patch*] Meloxicam 1 tab PO BID PRN 04/27/18 09/03/18 History Ondansetron ODT TAB* [Zofran 4 MG 4 mg PO Q6H PRN #20 tab.odt 04/27/18 09/03/18 Rx Odt TAB*] Meloxicam 7.5 mg PO BID 05/14/18 09/03/18 History Cyclobenzaprine TAB* [Flexeril 10 10 mg PO TID PRN #20 tab 06/01/18 09/03/18 Rx MG TAB*] Baclofen TAB* [Lioresal TAB*] 10 mg PO TID PRN 06/11/18 09/03/18 History Desogestrel-Ethinyl Estradiol 1 effie PO DAILY 08/06/18 09/03/18 History [Velivet 0.1/0.125/0.15 -0.025 mg] - History of Current Complaint Chief Complaint: EDAbdPain Stated Complaint: GALLBLADDER PAIN PER PT Hx Obtained From: Patient ?: No Onset/Duration: Sudden Onset, Lasting Hours, Still Present Timing: Constant Severity Initially: Severe Severity Currently: Severe Pain Intensity: 8 Pain Scale Used: 0-10 Numeric Location: Discrete At: RUQ Radiates: No Character: Sharp Aggravating Factor(s): Deep Breaths - inhalation Alleviating Factor(s): Nothing Associated Signs and Symptoms: Positive: Fever, Other: - pos: rash on abd above groin. Negative: Cough, Urinary Symptoms, Vomiting Allergies/Adverse Reactions: Allergies Allergy/AdvReac Type Severity Reaction Status Date / Time sulfamethoxazole Allergy Mild Rash Verified 09/04/18 09:40 [From Bactrim] trimethoprim [From Bactrim] Allergy Mild Rash Verified 09/04/18 09:40 Home Medications: Home Medications Dextroamphetamine/Amphetamine [Adderall 10 mg Tablet] 20 mg PO BID 09/04/18 [ History Confirmed 09/04/18] Dextroamphetamine/Amphetamine [Adderall 30 mg Tablet] 30 mg PO DAILY 09/04/18 [ History Confirmed 09/04/18] Ferrous Sulfate TAB* 325 mg PO DAILY 09/04/18 [History Confirmed 09/04/18] Meloxicam(NF) [Mobic(NF)] 7.5 mg PO BID 09/04/18 [History Confirmed 09/04/18] Pregabalin CAP(*) [Lyrica CAP(*)] 100 mg PO TID 09/04/18 [History Confirmed ] Turmeric 400 mg PO DAILY 09/04/18 [History Confirmed 09/04/18] Vortioxetine (NF) [Trintellix (NF)] 10 mg PO DAILY 09/04/18 [History Confirmed 09/04/18] busPIRone TAB* [Buspar TAB*] 10 mg PO DAILY 09/04/18 [History Confirmed 09/04/18 ] PMH/Surg Hx/FS Hx/Imm Hx Previously Healthy: No Endocrine/Hematology History: Reports: Hx Systemic Lupus Erythematosus Respiratory History: Reports: Hx Pneumonia Musculoskeletal History: Reports: Hx Back Problems - disc bulge between L4 and L5 Sensory History: Reports: Hx Contacts or Glasses Opthamlomology History: Reports: Hx Contacts or Glasses Psychiatric History: Reports: Hx Anxiety - Surgical History Surgery Procedure, Year, and Place: epidural injections of steroids for back pain Infectious Disease History: No Infectious Disease History: Denies: Traveled Outside the [place] in Last 30 Days - Family History Known Family History: Positive: Other - Lupus Family History: MS, RA, psoriasis - Social History Occupation: Employed Full-time Lives: Alone Alcohol Use: None Hx Substance Use: No Substance Use Type: Reports: None Substance Use 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 Negative: Vomiting Positive: no symptoms reported. Negative: dysuria, hematuria Positive: Arthralgia - chronic Positive: Rash - on abd-chronic Neurological: Negative Psychological: Normal All Other Systems Reviewed And Are Negative: Yes Physical Exam - Summary Physical Exam Summary: Appearance: Ill-appearing, moderate pain distress, obese Skin: Warm, color reflects adequate perfusion, dry Head: Normal Head/Face inspection, atraumatic Eyes: Conjunctiva clear ENT: Normal inspection Neck: Supple, no nodes, no JVD Respiratory: Lungs clear, normal breath sounds, no respiratory distress Cardio: RRR, No murmur, pulses normal, brisk capillary refill Abdomen: Soft, tender RUQ, no guarding, no rebound, nondistended, no CVAT, redness approx 2cm diam across lower abd above groin that pt states has been there. Rash is not open or weeping, is not a bulls-eye rash, not hives. Bowel sounds: Present Musculoskeletal: Strength Intact/ROM intact, no calf tenderness, no edema. Psychological: Normal Neuro: Alert, muscle tone normal, no focal deficit Triage Information Reviewed: Yes Vital Signs On Initial Exam: Initial Vitals Temp Pulse Resp BP Pulse Ox 97.6 F 81 18 122/79 100 09/04/18 09:37 09/04/18 09:37 09/04/18 09:37 09/04/18 09:37 09/04/18 09:37 Vital Signs Reviewed: Yes Diagnostics - Vital Signs Vital Signs Temp Pulse Resp BP Pulse Ox 09/04/18 12:12 97.3 F 75 16 108/71 100 09/04/18 09:37 97.6 F 81 18 122/79 100 - Laboratory Lab Results: Lab Results 09/04/18 09/04/18 09/04/18 Range/Units 13:38 13:39 13:39 WBC 5.8 (3.5-10.8) 10^3/uL RBC 4.28 (3.70-4.87) 10^6 /uL Hgb 12.4 (12.0-16.0) g/dL Hct 37 (35-47) % MCV 87 (80-97) fL MCH 29 (27-31) pg MCHC 34 (31-36) g/dL RDW 14 (10.5-15) % Plt Count 266 (150-450) 10^3/uL MPV 8.2 (7.4-10.4) fL Neut % (Auto) 53.5 % Lymph % (Auto) 25.2 % Cook % (Auto) 13.4 % Eos % (Auto) 7.1 % Baso % (Auto) 0.8 % Absolute Neuts (auto) 3.1 (1.5-7.7) 10^3/ul Absolute Lymphs (auto) 1.5 (1.0-4.8) 10^3/ul Absolute Monos (auto) 0.8 (0-0.8) 10^3/ul Absolute Eos (auto) 0.4 (0-0.6) 10^3/ul Absolute Basos (auto) 0.0 (0-0.2) 10^3/ul Absolute Nucleated RBC 0.0 10^3/ul Nucleated RBC % 0.0 Sodium 140 (135-145) mmol/L Potassium 4.1 (3.5-5.0) mmol/L Chloride 110 (101-111) mmol/L Carbon Dioxide 26 (22-32) mmol/L Anion Gap 4 (2-11) mmol/L BUN 8 (6-24) mg/dL Creatinine 0.80 (0.51-0.95) mg/dL Est GFR ( Amer) 101.9 (>60) Est GFR (Non-Af Amer) 84.2 (>60) BUN/Creatinine Ratio 10.0 (8-20) Glucose 75 (70-100) mg/dL Lactic Acid 0.6 (0.5-2.0) mmol/L Calcium 9.0 (8.6-10.3) mg/dL Total Bilirubin 0.30 (0.2-1.0) mg/dL AST 17 (13-39) U/L ALT 19 (7-52) U/L Alkaline Phosphatase 79 (34-104) U/L C-Reactive Protein 13.48 H (<8.01) mg/L Total Protein 6.4 (6.4-8.9) g/dL Albumin 3.6 (3.2-5.2) g/dL Globulin 2.8 (2-4) g/dL Albumin/Globulin Ratio 1.3 (1-3) Lipase 16 (11.0-82.0) U/L Beta HCG, Quant < 0.60 mIU/mL Urine Color Urine Appearance Urine pH (5-9) Ur Specific [place] (1.010-1.030) Urine Protein (Negative) Urine Ketones (Negative) Urine Blood (Negative) Urine Nitrate (Negative) Urine Bilirubin (Negative) Urine Urobilinogen (Negative) Ur Leukocyte Esterase (Negative) Urine Glucose (Negative) 09/04/18 Range/Units 13:56 WBC (3.5-10.8) 10^3/uL RBC (3.70-4.87) 10^6 /uL Hgb (12.0-16.0) g/dL Hct (35-47) % MCV (80-97) fL MCH (27-31) pg MCHC (31-36) g/dL RDW (10.5-15) % Plt Count (150-450) 10^3/uL MPV (7.4-10.4) fL Neut % (Auto) % Lymph % (Auto) % Cook % (Auto) % Eos % (Auto) % Baso % (Auto) % Absolute Neuts (auto) (1.5-7.7) 10^3/ul Absolute Lymphs (auto) (1.0-4.8) 10^3/ul Absolute Monos (auto) (0-0.8) 10^3/ul Absolute Eos (auto) (0-0.6) 10^3/ul Absolute Basos (auto) (0-0.2) 10^3/ul Absolute Nucleated RBC 10^3/ul Nucleated RBC % Sodium (135-145) mmol/L Potassium (3.5-5.0) mmol/L Chloride (101-111) mmol/L Carbon Dioxide (22-32) mmol/L Anion Gap (2-11) mmol/L BUN (6-24) mg/dL Creatinine (0.51-0.95) mg/dL Est GFR ( Amer) (>60) Est GFR (Non-Af Amer) (>60) BUN/Creatinine Ratio (8-20) Glucose (70-100) mg/dL Lactic Acid (0.5-2.0) mmol/L Calcium (8.6-10.3) mg/dL Total Bilirubin (0.2-1.0) mg/dL AST (13-39) U/L ALT (7-52) U/L Alkaline Phosphatase (34-104) U/L C-Reactive Protein (<8.01) mg/L Total Protein (6.4-8.9) g/dL Albumin (3.2-5.2) g/dL Globulin (2-4) g/dL Albumin/Globulin Ratio (1-3) Lipase (11.0-82.0) U/L Beta HCG, Quant mIU/mL Urine Color Straw Urine Appearance Cloudy Urine pH 6.0 (5-9) Ur Specific [place] 1.003 L (1.010-1.030) Urine Protein Negative (Negative) Urine Ketones Negative (Negative) Urine Blood Negative (Negative) Urine Nitrate Negative (Negative) Urine Bilirubin Negative (Negative) Urine Urobilinogen Negative (Negative) Ur Leukocyte Esterase Negative (Negative) Urine Glucose Negative (Negative) Result Diagrams: 09/04/18 13:39 09/04/18 13:39 Lab Statement: Any lab studies that have been ordered have been reviewed, and results considered in the medical decision making process. - Ultrasound No standard instances Ultrasound Interpretation Completed By: Radiologist Summary of Ultrasound Findings: Gallbladder US IMPRESSION: #. Hepatosteatosis. #. Mildly limited assessment of the gallbladder due to incomplete distention without compelling abnormality. ED provider has reviewed this report. Re-Evaluation - Re-Evaluation 1 Re-Evaluation Time: 16:04 Change: Improved Comment: Discussing results and plans for discharge patient after discussing with Dr. Arreguin and arranging follow up with Dr. Savanah Por, and referring pt to Dr. Carbone at Dr. Arreguin's request. Patient voiced understanding. Pain is relieved. Patient is hungry, will provide jimi crackers and juice. Abdominal Pain Fem Course/Dx - Course Course Of Treatment: Pt is a 28 y/o F presenting with sharp RUQ pain onset last night. Associated sx: fever (102 F), resolved. She also notes a skin infection above her groin. She has lupus and takes immunosuppressants. She started Benlysta in Mar 2018. She received the most recent dose yesterday. She sees Dr. Arreguin, rheumatology. Lab work shows CRP: 13.48. Gallbladder US shows "#. Hepatosteatosis. #. Mildly limited assessment of the gallbladder due to incomplete distention without compelling abnormality.". 1450: Consulted with Dr. Arreguin, rheumatology, who recommends HIDA scan, but feels patient is a safe discharge; he also recommends patient f/u with Dr. Carbone GI, for further studies due to abd pain and vomiting. 1543: Left message with Lan RN at Dr. Pro's office regarding the recommendation for HIDA scan for patient from Dr. Arreguin. Patient will be discharged home with Zofran and Percocet, to f/u with Dr. Carbone, GI; Dr. Pro, PCP, and Dr. Arreguin, rheumatology. Allergies noted. UA reviewed. Pt medications reviewed this visit. Nurses note reviewed. - Diagnoses Differential Diagnosis: Positive: Appendicitis, Bowel Obstruction, Gall Bladder Disease, Hepatitis, Irritable Bowel Syndrome, Pancreatitis, Peptic Ulcer Disease , Pneumonia, Renal Colic, Urinary Tract Infection Provider Diagnoses: RUQ abdominal pain, SLE (systemic lupus erythematosus) - Provider Notifications Discussed Care Of Patient With: Rudy Arreguin - rheumatology Time Discussed With Above Provider: 14:50 Instructed by Provider To: Other - Recommends HIDA scan, but feels patient is a safe discharge. Recommends patient f/u with Dr. Carbone, GI, for further studies due to abd pain. Discharge - Sign-Out/Discharge Documenting (check all that apply): Patient Departure - D/C Patient Received Moderate/Deep Sedation with Procedure: No - Discharge Plan Condition: Stable Disposition: HOME Prescriptions: Ondansetron ODT TAB* [Zofran 4 MG Odt TAB*] 4 mg PO Q6H PRN #20 tab.odt PRN Reason: Vomiting oxyCODONE/Acetamin 5/325 MG* [Percocet 5/325 TAB*] 1 tab PO Q6H PRN #12 tab MDD 4 PRN Reason: Pain Patient Education Materials: Biliary Colic (ED), Acute Abdominal Pain (ED) Referrals: Migel Carbone MD [Medical Doctor] - 1 Week Sonali Pro MD [Primary Care Provider] - 2 Days Rudy Arreguin MD [Medical Doctor] - 2 Days Additional Instructions: Dr. King spoke with Dr. Arreguin he is comfortable with you being discharged. He asked us to prescribe Zofran or your vomiting and something for your pain. Dr. King prescribed some Percocet. Dr. Arreguin also wants further evaluation of your gallbladder, so we spoke with Dr. Pro's office and they will get you in and order further studies on your gallbladder. We have also included Dr. Carbone's name as a referral, because Dr. Arreguin feels he should see gastroenterology because of your vomiting. We have given you a copy of the ultrasound and your gallbladder, and you should bring this to all of your doctors. Please return to the emergency room if you have any new or worsening symptoms. - Billing Disposition and Condition Condition: STABLE Disposition: Home - Attestation Statements Document Initiated by Scribe: Yes Documenting Scribe: Rex Trotter Provider For Whom Sharron is Documenting (Include Credential): Dr. Valorie King MD Scribe Attestation: Ozzy, Rex Trotter, missyibed for Dr. Valorie King MD on 09/07/18 at 1947. Scribe Documentation Reviewed: Yes Provider Attestation: The documentation as recorded by the sharron, Rex Trotter accurately reflects the service I personally performed and the decisions made by me, Dr. Valorie King MD Status of Scribchris Document: Viewed
[2018-09-04] MEDS ORDERED: oxyCODONE/Acetamin 5/325 MG* TAB PO ONE (14:39)
[2018-09-04] MEDS ORDERED: Ondansetron ODT TAB* 4 MG PO ONE (14:40)
[2018-09-04 16:11] VITALS: BP 119/82
== END 2018-09-04 16:10 | disposition home or self-care (01) ==
LOC: ED 09:31
DX: R10.11 Right upper quadrant pain (principal); M32.9 Systemic lupus erythematosus, unspecified; K76.0 Fatty (change of) liver, not elsewhere classified; R21 Rash and other nonspecific skin eruption; F41.9 Anxiety disorder, unspecified; Z88.2 Allergy status to sulfonamides
CPT/HCPCS: 36415; 76705; 80053; 81003; 83605; 83690; 84702; 85025; 86140; 99283; A9270-GY

== ENCOUNTER 2018-10-28 08:29 | Emergency (ER) | payer OTHER ==
[2018-10-28 08:37] VITALS: BP 134/73
--- NOTE | 2018-10-28 09:30 | UC ---
Hand/Wrist HPI - HPI Summary HPI Summary: WOKE UP THIS MORNING WITH PAIN AND REDNESS TO LEFT DISTAL THUMB. STATES THERE WAS BLOODY PUS CRUSTED AROUND THE NAIL. STATES SHE GOT A HANGNAIL YESTERDAY AND WAS CHEWING ON IT. - History Of Current Complaint Chief Complaint: UCSkin Stated Complaint: THUMB INJURY Time Seen by Provider: 10/28/18 08:44 Hx Obtained From: Patient Hx Last Menstrual Period: 10/14/18 Onset/Duration: Sudden Onset, Lasting Hours, Still Present Severity Initially: Moderate Severity Currently: Moderate Pain Intensity: 7 Pain Scale Used: 0-10 Numeric Character Of Pain: Sharp Aggravating Factor(s): Other - TOUCH Alleviating Factor(s): Nothing Associated Signs And Symptoms: Positive: Redness Related History: Dominant Hand Right - Allergies/Home Medications Allergies/Adverse Reactions: Allergies Allergy/AdvReac Type Severity Reaction Status Date / Time sulfamethoxazole Allergy Mild Rash Verified 10/28/18 08:37 [From Bactrim] trimethoprim [From Bactrim] Allergy Mild Rash Verified 10/28/18 08:37 PMH/Surg Hx/FS Hx/Imm Hx - Additional Past Medical History Additional PMH: LUPUS, FIBROMYALGIA, CHRONIC BACK PAIN - Surgical History Surgical History: Yes Surgery Procedure, Year, and Place: epidural injections of steroids for back pain - Family History Known Family History: Positive: Other - Lupus Family History: MS, RA, psoriasis - Social History Alcohol Use: None Substance Use Type: None Substance Use 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 Smoking Status (MU): Never Smoked Tobacco - Immunization History Most Recent Tetanus Shot: UTD Review of Systems All Other Systems Reviewed And Are Negative: Yes Constitutional: Positive: Negative Skin: Positive: Other - ERYTHEMA Respiratory: Positive: Negative Cardiovascular: Positive: Negative Gastrointestinal: Positive: Negative Physical Exam Triage Information Reviewed: Yes Appearance: Well-Appearing, No Pain Distress, Well-Nourished Vital Signs: Initial Vital Signs Temp 97.2 F 10/28/18 08:34 Pulse 94 10/28/18 08:34 Resp 18 10/28/18 08:34 BP 134/73 10/28/18 08:34 Pulse Ox 97 10/28/18 08:34 Vital Signs Reviewed: Yes Eyes: Positive: Conjunctiva Clear ENT: Positive: Hearing grossly normal Neck: Positive: Supple Respiratory: Positive: No respiratory distress, No accessory muscle use Cardiovascular: Positive: Pulses Normal Abdomen Description: Positive: Soft Musculoskeletal: Positive: ROM Intact, No Edema Neurological: Positive: Alert Psychological: Positive: Age Appropriate Behavior Skin: Positive: Other - ERYTHEMA LEFT THUMB LATERAL TO NAILBED WITH SMALL OPENING ABUTTING THE NAIL. NO ACTIVE DRAINAGE. TENDER Hand/Wrist Course/Dx - Course Course Of Treatment: PATIENT WITH A PARONYCHIA OF HER LEFT LATERAL THUMBNAIL. SHE DOES ADMIT TO CHEWING ON A HANGNAIL ON THE AFFECTED THUMB YESTERDAY. DISCUSSED THAT AUGMENTIN MAY BE THE APPROPRIATE CHOICE GIVEN THE POSSIBILITY OF INFECTION WITH ORAL ANNA HOWEVER PATIENT REPORTS A VERY SENSITIVE STOMACH AND THE LAST TIME SHE WAS ON ANTIBIOTICS SHE HAD DIARRHEA FOR A MONTH. SHE WOULD PREFER NOT TO TAKE SUCH A BROAD SPECTRUM ANTIBIOTIC. SINCE INFECTION LOOKS MILD WILL GO AHEAD AND GIVE KEFLEX. ADVISED PATIENT THAT IF SHE IS NOT IMPROVED IN THE NEXT 48 HOURS SHE IS TO SEEK REEVALUATION. HOT SOAKS SEVERAL TIMES DAILY. - Differential Dx/Diagnosis Provider Diagnosis: Paronychia of left thumb Discharge - Sign-Out/Discharge Documenting (check all that apply): Patient Departure All imaging exams completed and their final reports reviewed: No Studies - Discharge Plan Condition: Stable Disposition: HOME Prescriptions: Cephalexin CAP* [Keflex 500 CAP*] 500 mg PO BID #14 cap Fluconazole 150 MG (NF) [Diflucan 150 mg (NF)] 150 mg PO ONCE #2 tab Patient Education Materials: Paronychia (ED) Forms: *Work Release Referrals: Sonali Pro MD [Primary Care Provider] - If Needed Additional Instructions: TAKE THE ANTIBIOTIC FOR THE FULL COURSE. WARM/HOT COMPRESSES/SOAKS AT LEAST 4 TIMES DAILY APPLY THIN LAYER ANTIBIOTIC OINTMENT UNDER BANDAGE. AVOID NEOMYCIN CONTAINING PRODUCTS. CHANGE BANDAGE DAILY AND NEEDED IF IT BECOMES SOILED OR WET. SEEK FOLLOW-UP IF YOU DEVELOP SPREADING REDNESS OF THE SKIN, PURULENT DRAINAGE, FEVER, INCREASED PAIN OR ANY OTHER CONCERNING SYMPTOMS. - Billing Disposition and Condition Condition: STABLE Disposition: Home
== END 2018-10-28 09:30 | disposition home or self-care (01) ==
LOC: UCEAST 08:29
DX: L03.012 Cellulitis of left finger (principal); Z88.2 Allergy status to sulfonamides
CPT/HCPCS: 99212; G0463

== ENCOUNTER 2018-11-08 08:43 | Emergency (ER) | payer OTHER ==
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
[2018-11-08 09:03] VITALS: BP 141/86
--- NOTE | 2018-11-08 09:23 | UC ---
Skin Complaint HPI - HPI Summary HPI Summary: yesterday patient noticed R index finger getting red around nail. today was swollen and pt squeezed pus out of area. now less painful and swollen states she does not recall injury and oes not bite nails - History of Current Complaint Chief Complaint: UCSkin Time Seen by Provider: 11/08/18 08:56 Stated Complaint: R FINGER COMPLAINTCAR Hx Obtained From: Patient Hx Last Menstrual Period: 11/06/18 Onset/Duration: Sudden Onset Onset Severity: Mild Current Severity: Moderate Pain Intensity: 6 Location: Hand (Right) - index finger Character: Swelling, Redness, Painful Aggravating Factor(s): Touch Alleviating Factor(s): Nothing Associated Signs & Symptoms: Positive: Drainage - this am, small amount. Negative: Fever, Chills - Allergy/Home Medications Allergies/Adverse Reactions: Allergies Allergy/AdvReac Type Severity Reaction Status Date / Time sulfamethoxazole Allergy Mild Rash Verified 11/08/18 08:55 [From Bactrim] trimethoprim [From Bactrim] Allergy Mild Rash Verified 11/08/18 08:55 PMH/Surg Hx/FS Hx/Imm Hx - Additional Past Medical History Additional PMH: lupus Previously Healthy: Yes Psychological History: Anxiety, Depression, Other - ADHD - Surgical History Surgical History: Yes Surgery Procedure, Year, and Place: epidural injections of steroids for back pain - Family History Known Family History: Positive: Other - Lupus Family History: MS, RA, psoriasis - Social History Occupation: Employed Full-time Lives: Alone Alcohol Use: None Substance Use Type: None Substance Use 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 Smoking Status (MU): Never Smoked Tobacco - Immunization History Most Recent Tetanus Shot: UTD Review of Systems All Other Systems Reviewed And Are Negative: Yes Constitutional: Positive: Negative Skin: Positive: Other - swelling redness R index Respiratory: Positive: Negative Cardiovascular: Positive: Negative Musculoskeletal: Positive: Negative Neurological: Positive: Negative Psychological: Positive: Negative Is Patient Immunocompromised?: Yes - lupus Physical Exam Triage Information Reviewed: Yes Appearance: No Pain Distress, Obese Vital Signs: Initial Vital Signs Temp 97.6 F 11/08/18 08:58 Pulse 100 11/08/18 08:58 Resp 18 11/08/18 08:58 BP 141/86 11/08/18 08:58 Pulse Ox 100 11/08/18 08:58 Vital Signs Reviewed: Yes Respiratory Exam: Normal Respiratory: Positive: Lungs clear Cardiovascular Exam: Normal Cardiovascular: Positive: RRR Musculoskeletal Exam: Normal Musculoskeletal: Positive: Strength Intact, ROM Intact Neurological Exam: Normal Neurological: Positive: Alert Psychological Exam: Normal Skin: Positive: Other - minor erythema nd swelling R index finger: cutical area , no drainage or pustule. Negative: Rashes Course/Dx - Differential Diagnoses - Skin Complaint Differential Diagnoses: Abscess, Cellulitis - paronychia, Other - paronychia - Diagnoses Provider Diagnosis: Paronychia of finger Discharge - Sign-Out/Discharge Documenting (check all that apply): Patient Departure All imaging exams completed and their final reports reviewed: No Studies - Discharge Plan Condition: Good Disposition: HOME Patient Education Materials: Paronychia (ED) Referrals: Sonali Pro MD [Primary Care Provider] - 2 Days (for rechekc finger and blod pressure) Additional Instructions: soak finger in hibiclens solution 2-3 times a day and gently scrub with soft toothbrush return if pain, redness, or swelling worsen at any time - Billing Disposition and Condition Condition: GOOD Disposition: Home
== END 2018-11-08 09:32 | disposition home or self-care (01) ==
LOC: UCEAST 08:43
DX: L03.011 Cellulitis of right finger (principal); F41.9 Anxiety disorder, unspecified; F32.9 Major depressive disorder, single episode, unspecified; F90.9 Attention-deficit hyperactivity disorder, unspecified type; Z88.2 Allergy status to sulfonamides
CPT/HCPCS: 99211; G0463

== ENCOUNTER 2019-02-16 14:22 | Day surgery (SDC) | payer OTHER ==
--- NOTE | 2019-02-10 13:23 | HP ---
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 HISTORY OF PRESENT ILLNESS: This is a 28-year-old female with complaints of numbness and tingling in her right hand. This has been ongoing for a few years. It has recently gotten worse. She has a lot of trouble sleeping right now because of this even though she wears a brace. She is less symptomatic during the day. 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 There was no specific injury. She denies any neck pain. Clinically, she has been diagnosed with carpal tunnel syndrome and has consented to proceed with surgical intervention. PAST MEDICAL HISTORY: 1. Lupus. 2. PTSD. 3. Fibromyalgia. 4. Pott's disease. PAST SURGICAL HISTORY: None. CURRENT MEDICATIONS: 1. Abilify 20 mg daily. 2. Adderall XR 30 mg daily. 3. B-complex. 4. Benlysta IV. 5. CVS B6 100 mg daily. 6. Fast acting B12 2500 mcg daily. 7. Folic acid 1 mg daily. 8. Gabapentin 300 mg 3 times a day. 9. Iron 325/65 Fe mg daily. 10. Klonopin 1 mg t.i.d. 11. Lidoderm 5% applied to affected area 12 hours on and 12 hours off. 12. Lyrica 100 mg 3 times a day. 13. Magnesium 250 mg daily. 14. Meloxicam 7.5 mg twice daily p.r.n. pain. 15. Methotrexate 2.5 mg 3 tabs once a week on . 16. Nystatin p.r.n. 17. Ondansetron 4 mg twice daily p.r.n. nausea. 18. Plaquenil 200 mg 2 tabs daily. 19. Tramadol 50 mg twice daily p.r.n. pain. 20. Trintellix 10 mg daily. 21. Turmeric 400 mg daily. 22. Vitamin D 1000 units daily. 23. Voltaren 1% apply 2 g twice daily p.r.n. pain left ankle. ALLERGIES: BACTRIM, reaction unknown. FAMILY MEDICAL HISTORY: Rheumatoid arthritis, diabetes, and hypertension. SOCIAL HISTORY: The patient is employed at [employer] as a head librarian. She denies tobacco use, recreational drug use; and she does not drink alcohol. REVIEW OF SYSTEMS: Positive for chills, frequent nosebleeds, nausea, vomiting, diarrhea, chronic neck pain, back pain, skin rash, weight gain, easy bruising, depression, and anxiety. Otherwise negative for cephalic, cardiovascular, respiratory, GI, , other musculoskeletal, skin, neurologic, endocrine, and hematologic symptoms. PHYSICAL EXAMINATION GENERAL: Well-developed, well-nourished 28-year-old male, in no acute distress. VITAL SIGNS: Height 5 feet 5 inches, weight 287 pounds, pulse rate 102, blood pressure 140/80. HEENT: Normocephalic and atraumatic. Pupils are equal, round, and reactive to light and accommodation. Extraocular movements are intact. Throat is clear. NECK: Supple. No palpable lymph nodes. PULMONARY: Lungs are clear to auscultation bilaterally. No wheezes, rales, or rhonchi. CARDIOVASCULAR: Regular rate and rhythm. S1 and S2. No murmurs, rubs, or gallops. No edema. ABDOMEN: Positive bowel sounds. Soft and nontender. NEUROLOGIC: Alert and oriented x3. Cranial nerves II through XII are intact. Sensation is intact to light touch. MUSCULOSKELETAL: On exam of her right hand, she has no thenar wasting. She does have some weakness with thumb abduction and a positive Tinel sign at the median nerve at the wrist. She also has a positive median nerve compression test. She has good motion in her fingers and wrist motion is normal. She has sensation intact throughout the hand. IMPRESSION: Right carpal tunnel syndrome. PLAN/RECOMMENDATIONS: The patient is scheduled to undergo a right wrist carpal tunnel release with Dr. Handley on 02/16/19. She will return to the office 10 days postop for followup and suture removal. A prescription for Percocet was e- scribed to the patient's pharmacy for postoperative pain management. TIFFANIE LÓPEZ [id number]/[facility] #: [id number] [facility]ITAL[facility]
[~2019-02-16 14:22] MED LIST: Buffered Lidocaine 1% SYRIN* 1 ML/SYRINGE INTRADERM ONE; Dexamethasone IV* 4 MG/ML 1 ML (4 MG) IV SLOW PU ONE; Famotidine IV* 10 MG/ML 2 ML (20 mg) IV ONE; Lactated Ringers 1000 ML Bag* 1,000 ML IV SCH
[2019-02-16] MEDS ORDERED: Dexamethasone IV* 4 MG/ML 1 ML (4 MG) ONE ×2 (15:36→16:20)
[2019-02-16] MEDS ORDERED: Famotidine IV* 10 MG/ML 2 ML (20 mg) ONE ×2 (15:36→16:20)
[2019-02-16] MEDS ORDERED: Buffered Lidocaine 1% SYRIN* 1 ML/SYRINGE INTRADERM ONE (15:48)
[2019-02-16] MEDS ORDERED: clonazePAM TAB(*) 1 MG PO ONE (16:00)
[2019-02-16] MEDS ORDERED: Midazolam* 1 MG/ML 10 ML VIAL (10 MG) ONE (16:32)
[2019-02-16] MEDS ORDERED: fentaNYL* 50 MCG/ML 2 ML VIAL (100 MCG VIAL) ONE (16:32)
[2019-02-16] MEDS ORDERED: Lidocaine 2% PF * 5 ML VIAL ONE (16:32)
[2019-02-16] MEDS ORDERED: Ondansetron INJ* 2 MG/ML VIAL ONE (16:32)
[2019-02-16] MEDS ORDERED: Ketorolac INJ* 30 MG/ML 1 ML VIAL ONE (16:32)
[2019-02-16] MEDS ORDERED: Propofol* 10 MG/ML 20 ML BTL ONE (16:32)
[2019-02-16] MEDS ORDERED: Lidocaine 1% INJ* 10 MG/ML 30 ML SDV ONE (17:16)
[2019-02-16] MEDS ORDERED: oxyCODONE/Acetamin 5/325 MG* TAB PO PRN (18:27)
[2019-02-16] MEDS ORDERED: fentaNYL* 50 MCG/ML 2 ML VIAL (100 MCG VIAL) IV PRN (18:27)
[2019-02-16] MEDS ORDERED: Naloxone* 0.4 MG/ML 1 ML VIAL IV PRN (18:27)
[2019-02-16 19:41] VITALS: BP 117/73
--- NOTE | 2019-02-17 02:05 | OP ---
DATE OF OPERATION: 02/16/19 - SDS DATE OF : 86 SURGEON: Bette Handley MD. TELETYPEWRITER OPERATOR: TIFFANIE Bowman. ANESTHESIA: Local MAC. PRE-OP DIAGNOSIS: Right carpal tunnel syndrome. POST-OP DIAGNOSIS: Right carpal tunnel syndrome. OPERATIVE PROCEDURE: Right carpal tunnel release. ESTIMATED BLOOD LOSS: Zero. TOURNIQUET TIME: Approximately 10 minutes. INDICATIONS FOR PROCEDURE: Malgorzata is a 28-year-old female who has numbness and tingling in the median nerve distribution of her right hand. She presents for right carpal tunnel release. DESCRIPTION OF PROCEDURE: The patient was brought to the operating room, was given a sedation anesthetic and a local infiltration of 10 cc of 1% plain lidocaine in the palm of her right hand. The skin of her right hand and forearm was prepped and draped in the usual sterile fashion. The hand and forearm were exsanguinated and the tourniquet elevated to 250 mmHg. A longitudinal incision was made in the palm in line with the ring finger. We dissected through the subcutaneous tissue down to the transverse carpal ligament. The ligament was divided sharply with a knife and then more proximally with the scissors. The nerve was dissected free from the surrounding tissue and there was an area of moderate compression at the mid portion of the ligament. The wound was irrigated and the skin edges reapproximated with 4- 0 nylon suture. The wound was dressed with Xeroform, 4x4 , Webril, and an Justin wrap. The patient tolerated the procedure well and was brought to the recovery room in good condition. [id number]/[facility] #: [id number] [facility]
== END 2019-02-16 19:00 | disposition home or self-care (01) ==
LOC: OR 14:22
PROVIDERS: ATTEND Orthopaedic Surgery
DX: G56.01 Carpal tunnel syndrome, right upper limb (principal); M32.9 Systemic lupus erythematosus, unspecified; F43.10 Post-traumatic stress disorder, unspecified; M79.7 Fibromyalgia; A18.01 Tuberculosis of spine; K21.9 Gastro-esophageal reflux disease without esophagitis
CPT/HCPCS: 81025; A9270-GY; J1100; J1885; J2250; J2405; J2704; J3010

== ENCOUNTER 2019-04-30 07:37 | Emergency (ER) | payer OTHER ==
--- OUTSIDE RECORDS SUMMARY | 2019-04-30 07:43 | XMS REPORT | Continuity of Care Document ---
:1990 External Reference #:[id number] Author Name Bette Handley M.D. (transmitted by agent of provider Jori Hoffman) Address [address] [facility] [place] [address] Care Team Providers Name Role Phone Sonali Pro MD - Family Care Team Information Meeting Facilitator [phone] Medicine Problems Description No Information Available Social History Type Date Description Comments Sex Unknown ETOH Use Never used alcohol Tobacco Use Start: Unknown Patient has never smoked Smoking Status Reviewed: 03/22/19 Patient has never smoked Exercise Type/Frequency Does not exercise Exercise Type/Frequency She cannot exercise given her chronic pain Allergies, Adverse Reactions, Alerts Active Allergies Reaction Severity Comments Date Bactrim 03/11/2018 Medications Active Medications SIG Qnty Indications Ordering Date Provider Percocet 1 tab by mouth 15tabs Bette Handley, 02/10/2019 5-325mg every 4-6 hours M.D. Tablets as needed pain [facility] B6 take one 60tabs Rudy Arreguin, 01/28/2019 100mg Tablets capsule/tablet M.D. daily by mouth Mattress Tempur Pedic for 1units Rudy Arreguin, 01/28/2019 Pad/35"X74"/Egg the spine OA and M.D. Crate 2" use daily for Eggcr/2" mattress support Misc Dx Lumbar OA 722.52 Ondansetron dissolve one 40tabs Rudy Arreguin, 12/18/2018 4mg tablet by mouth M.D. Tablets Dispers twice daily as needed for nausea. Voltaren apply 2 grams 200units Rudy Arreguin, 12/16/2018 1% Gel twice daily as M.D. needed for pain to the left ankle Tramadol HCL take one 60tabs Rudy Arreguin, 12/16/2018 50mg capsule/tab every M.D. Tablets 8 hours (total of 3 per day) Methotrexate Take 3 Tablets By 14tabs Rudy Kallie, 12/16/2018 2.5mg Mouth Once A Week M.D. Tablets On Folic Acid take one 90tabs Rudy Kallie, 12/16/2018 1mg capsule/tablet M.D. Tablets daily by mouth Fast Acting B12 sublingual daily 90tabs Rudy Arreguin, 11/20/2018 M.D. 2500mcg Tablets Sub Meloxicam Take 1 Tablet By 60tabs Rudy Kallie, 09/22/2018 7.5mg Mouth Twice Daily M.D. Tablets as Needed For Pain, Avoid Other NSAIDS Plaquenil Take 2 Tablets By 60tabs Rudy Kallie, 09/02/2018 200mg Mouth Daily M.D. Tablets Nystatin use between the 15gm B37.9 Rudy Kallie, 05/07/2018 breast twice a M.D. [id number]/GM day until Ointment symptoms resolved Lidoderm 1 [facility], 04/15/2018 5% Patches affected area 12 M.D. hours on, 12 hours off Benlysta IV [facility], 03/16/2018 Solution M.D. Rec Adderall XR 1 by mouth every Unknown 30mg Caps day ER 24HR Abilify 1 by mouth every Unknown 20mg Tablets day Gabapentin 1 by mouth three 270caps Zsofia Osvaldo, 300mg times a day CARDIOVASCULAR LAB DIRECTOR Capsules Trintellix 1 by mouth every Unknown 10mg day Tablets Magnesium Unknown 250mg Tablets Vitamin D by mouth everyday Unknown 1000Unit Tablets Klonopin tid Unknown 1mg Tablets Turmeric Unknown 400mg Capsules Iron 1 by mouth every Unknown 325(65Fe) mg day Tablets Lyrica take 1 capsule by 90caps Rudy Arreguin, 100mg Capsules mouth 3 times a M.D. day B Complex Unknown Capsules Immunizations CPT Code Status Date Vaccine Reaction Lot # 64509 Given 05/07/2018 Pneumococcal Conjugate no immediate reaction [id number] Vaccine 13 Valent For noted Intramuscular Use Vital Signs Date Vital Result Comment 03/22/2019 9:02am Height 65 inches 5'5" Weight 287.00 lb Heart Rate 84 /min BP Systolic Sitting 148 mmHg BP Diastolic Sitting 78 mmHg BMI (Body Mass Index) 47.8 kg/m2 02/24/2019 9:16am Height 67 inches 5'7" Weight 287.00 lb Heart Rate 102 /min Body Temperature 96.3 F Pain Level 7 O2 % BldC Oximetry 99 % BMI (Body Mass Index) 44.9 kg/m2 Results Test Acquired Date Facility Test Result H/L Range Note Comp Metabolic 02/25/2019 [facility] Sodium 136 mmol/L Normal 135-[address] [place] [address] [phone] Chloride 101 mmol/L Normal 101-111 Co2 Carbon Dioxide 30 mmol/L Normal 22-32 Glucose 83 mg/dL Normal 70-100 Blood Urea Nitrogen 12 mg/dL Normal 6-24 Creatinine 0.85 mg/dL Normal 0.51-0.95 BUN/Creatinine Ratio 14.1 Normal 8-20 Calcium 9.8 mg/dL Normal 8.6-10.3 Total Protein 7.0 g/dL Normal 6.4-8.9 Albumin 4.2 g/dL Normal 3.2-5.2 Globulin 2.8 g/dL Normal 2-4 Albumin/Globulin Ratio 1.5 Normal 1-3 Total Bilirubin 0.20 mg/dL Normal 0.2-1.0 Alkaline Phosphatase 83 U/L Normal 34-104 Alt 26 U/L Normal 7-52 Egfr Non- 78.5 >60 Egfr 95.0 >60 1 Potassium 4.5 mmol/L Normal 3.5-5.0 2 Anion Gap 5 mmol/L Normal 2-11 Ast 21 U/L Normal 13-39 3 Laboratory test 02/25/2019 [facility] C Reactive 6.22 mg/L Normal <8.[address] [place] [address] [phone] CBC Auto Diff 02/25/2019 [facility] White Blood 7.2 Normal 3.5 -10.[address] Count 10^3/[place] [address] [phone] Red Blood Count 4.50 10^6/uL Normal 3.70-4.87 Hemoglobin 13.3 g/dL Normal 12.0-16.0 Hematocrit 39 % Normal 35-47 Mean Corpuscular Volume 88 fL Normal 80-97 Mean Corpuscular Hemoglobin 30 pg Normal 27-31 Mean Corpuscular HGB Conc 34 g/dL Normal 31-36 Red Cell Distribution Width 15 % Normal 10-15 Platelet Count 279 10^3/uL Normal 150-450 Mean Platelet Volume 9.0 fL Normal 7.4-10.4 Abs Neutrophils 4.5 10^3/uL Normal 1.5-7.7 Abs Lymphocytes 1.9 10^3/uL Normal 1.0-4.8 Abs Monocytes 0.5 10^3/uL Normal 0-0.8 Abs Eosinophils 0.2 10^3/uL Normal 0-0.6 Abs Basophils 0.0 10^3/uL Normal 0-0.2 Abs Nucleated RBC 0.0 10^3/uL Granulocyte % 62.7 % Lymphocyte % 26.9 % Monocyte % 6.8 % Eosinophil % 3.0 % Basophil % 0.6 % Nucleated Red Blood Cells % 0.0 Laboratory test 02/25/2019 [facility] Erythrocyte Sed 17 mm/Hr Normal 0-[address] [place] [address] [phone] Laboratory test 01/28/2019 [facility] C Reactive 7.07 mg/L Normal <8.[address] [place] [address] [phone] Pthi 01/28/2019 [facility] Calcium (PTH 9.4 mg/dL Normal 8.6- 10.[address] Intact) [place], [place] [id number] [phone] PTH Intact 50.8 pg/mL Normal 12-88 Laboratory 01/28/2019 [facility] TSH (Thyroid 1.28 Normal 0.34 -5.60 test finding [address] Stim Horm) mcIU/[place] [address] [phone] Free Cortisol Serum 0.389 g/dL 4 CBC Auto 01/28/2019 [facility] White Blood 6.0 10^3/uL Normal 3.5-10.[address] [place] [address] [phone] Red Blood Count 4.56 10^6/uL Normal 3.70-4.87 Hemoglobin 13.5 g/dL Normal 12.0-16.0 Hematocrit 39 % Normal 35-47 Mean Corpuscular Volume 86 fL Normal 80-97 Mean Corpuscular Hemoglobin 30 pg Normal 27-31 Mean Corpuscular HGB Conc 34 g/dL Normal 31-36 Red Cell Distribution Width 15 % Normal 10-15 Platelet Count 275 10^3/uL Normal 150-450 Mean Platelet Volume 8.9 fL Normal 7.4-10.4 Abs Neutrophils 3.6 10^3/uL Normal 1.5-7.7 Abs Lymphocytes 1.9 10^3/uL Normal 1.0-4.8 Abs Monocytes 0.4 10^3/uL Normal 0-0.8 Abs Eosinophils 0.1 10^3/uL Normal 0-0.6 Abs Basophils 0.0 10^3/uL Normal 0-0.2 Abs Nucleated RBC 0.0 10^3/uL Granulocyte % 59.6 % Lymphocyte % 31.8 % Monocyte % 7.1 % Eosinophil % 1.0 % Basophil % 0.5 % Nucleated Red Blood Cells % 0.0 Comp Metabolic 01/28/2019 [facility] Sodium 138 mmol/L Normal 135-[address] [place] [address] [phone] Potassium 3.8 mmol/L Normal 3.5-5.0 Chloride 107 mmol/L Normal 101-111 Co2 Carbon Dioxide 25 mmol/L Normal 22-32 Anion Gap 6 mmol/L Normal 2-11 Glucose 98 mg/dL Normal 70-100 Blood Urea Nitrogen 11 mg/dL Normal 6-24 Creatinine 0.87 mg/dL Normal 0.51-0.95 BUN/Creatinine Ratio 12.6 Normal 8-20 Calcium 9.5 mg/dL Normal 8.6-10.3 Total Protein 7.2 g/dL Normal 6.4-8.9 Albumin 4.3 g/dL Normal 3.2-5.2 Globulin 2.9 g/dL Normal 2-4 Albumin/Globulin Ratio 1.5 Normal 1-3 Total Bilirubin 0.40 mg/dL Normal 0.2-1.0 Alkaline Phosphatase 86 U/L Normal 34-104 Alt 22 U/L Normal 7-52 Ast 22 U/L Normal 13-39 Egfr Non- 76.4 >60 Egfr 92.5 >60 5 Laboratory test 01/28/2019 [facility] Aldolase 6.0 U/L <7.7 6 finding [address] [place] [address] [phone] Comp Metabolic 12/31/2018 [facility] Sodium 138 mmol/L Normal 135-145 Panel [address] [place] [address] [phone] Potassium 3.8 mmol/L Normal 3.5-5.0 Chloride 108 mmol/L Normal 101-111 Co2 Carbon Dioxide 26 mmol/L Normal 22-32 Anion Gap 4 mmol/L Normal 2-11 Glucose 92 mg/dL Normal 70-100 Blood Urea Nitrogen 9 mg/dL Normal 6-24 Creatinine 0.80 mg/dL Normal 0.51-0.95 BUN/Creatinine Ratio 11.3 Normal 8-20 Calcium 8.5 mg/dL Low 8.6-10.3 Total Protein 6.4 g/dL Normal 6.4-8.9 Albumin 3.9 g/dL Normal 3.2-5.2 Globulin 2.5 g/dL Normal 2-4 Albumin/Globulin Ratio 1.6 Normal 1-3 Total Bilirubin 0.20 mg/dL Normal 0.2-1.0 Alkaline Phosphatase 84 U/L Normal 34-104 Alt 22 U/L Normal 7-52 Ast 18 U/L Normal 13-39 Egfr Non- 84.2 >60 Egfr 101.9 >60 7 Laboratory test 12/31/2018 [facility] C Reactive 5.51 mg/L Normal <8.01 finding [address] [facility] [place] [address] [phone] CBC Auto Diff 12/31/2018 [facility] White Blood 5.3 Normal 3.5 -10.8 [address] [facility] Count 10^3/[place] [address] [phone] Red Blood Count 4.25 10^6/uL Normal 3.70-4.87 Hemoglobin 12.2 g/dL Normal 12.0-16.0 Hematocrit 37 % Normal 35-47 Mean Corpuscular Volume 87 fL Normal 80-97 Mean Corpuscular Hemoglobin 29 pg Normal 27-31 Mean Corpuscular HGB Conc 33 g/dL Normal 31-36 Red Cell Distribution Width 15 % Normal 10-15 Platelet Count 246 10^3/uL Normal 150-450 Mean Platelet Volume 9.1 fL Normal 7.4-10.4 Abs Neutrophils 2.9 10^3/uL Normal 1.5-7.7 Abs Lymphocytes 1.9 10^3/uL Normal 1.0-4.8 Abs Monocytes 0.4 10^3/uL Normal 0-0.8 Abs Eosinophils 0.1 10^3/uL Normal 0-0.6 Abs Basophils 0.0 10^3/uL Normal 0-0.2 Abs Nucleated RBC 0.0 10^3/uL Granulocyte % 54.5 % Lymphocyte % 35.3 % Monocyte % 7.3 % Eosinophil % 2.3 % Basophil % 0.6 % Nucleated Red Blood Cells % 0.1 Laboratory test 12/31/2018 [facility] Erythrocyte Sed 23 mm/Hr High 0-[address] [place] [address] [phone] Comp Metabolic 12/03/2018 [facility] Sodium 139 Normal 135- [address] mmol/[place] [address] [phone] Potassium 4.1 mmol/L Normal 3.5-5.0 Chloride 107 mmol/L Normal 101-111 Co2 Carbon Dioxide 27 mmol/L Normal 22-32 Anion Gap 5 mmol/L Normal 2-11 Glucose 67 mg/dL Low 70-100 Blood Urea Nitrogen 12 mg/dL Normal 6-24 Creatinine 0.80 mg/dL Normal 0.51-0.95 BUN/Creatinine Ratio 15.0 Normal 8-20 Calcium 9.4 mg/dL Normal 8.6-10.3 Total Protein 6.7 g/dL Normal 6.4-8.9 Albumin 4.1 g/dL Normal 3.2-5.2 Globulin 2.6 g/dL Normal 2-4 Albumin/Globulin Ratio 1.6 Normal 1-3 Total Bilirubin 0.30 mg/dL Normal 0.2-1.0 Alkaline Phosphatase 91 U/L Normal 34-104 Alt 19 U/L Normal 7-52 Ast 16 U/L Normal 13-39 Egfr Non- 84.2 >60 Egfr 101.9 >60 8 Laboratory test 12/03/2018 [facility] C Reactive 7.51 mg/L Normal <8.[address] [place] [address] [phone] Erythrocyte Sed Rate 30 mm/Hr High 0-19 FSH And LH 12/03/2018 [facility] FSH (Follicle Stim 9.6 mIU/mL [address] Hormone) [place] [address] [phone] LH (Lutenizing Hormone) 4.1 mIU/mL 10 CBC Auto 12/03/2018 [facility] White Blood 7.0 10^3/uL Normal 3.5-10.[address] [place] [address] [phone] Red Blood Count 4.50 10^6/uL Normal 3.70-4.87 Hemoglobin 12.8 g/dL Normal 12.0-16.0 Hematocrit 39 % Normal 35-47 Mean Corpuscular Volume 87 fL Normal 80-97 Mean Corpuscular Hemoglobin 29 pg Normal 27-31 Mean Corpuscular HGB Conc 33 g/dL Normal 31-36 Red Cell Distribution Width 14 % Normal 10-15 Platelet Count 288 10^3/uL Normal 150-450 Mean Platelet Volume 8.6 fL Normal 7.4-10.4 Abs Neutrophils 3.9 10^3/uL Normal 1.5-7.7 Abs Lymphocytes 2.1 10^3/uL Normal 1.0-4.8 Abs Monocytes 0.5 10^3/uL Normal 0-0.8 Abs Eosinophils 0.4 10^3/uL Normal 0-0.6 Abs Basophils 0.1 10^3/uL Normal 0-0.2 Abs Nucleated RBC 0.0 10^3/uL Granulocyte % 56.1 % Lymphocyte % 30.6 % Monocyte % 6.9 % Eosinophil % 5.5 % Basophil % 0.9 % Nucleated Red Blood Cells % 0.0 CBC Auto 11/06/2018 [facility] White Blood 8.0 10^3/uL Normal 3.5-10.[address] [place] [address] [phone] Red Blood Count 4.58 10^6/uL Normal 3.70-4.87 Hemoglobin 13.4 g/dL Normal 12.0-16.0 Hematocrit 39 % Normal 35-47 Mean Corpuscular Volume 86 fL Normal 80-97 Mean Corpuscular Hemoglobin 29 pg Normal 27-31 Mean Corpuscular HGB Conc 34 g/dL Normal 31-36 Red Cell Distribution Width 14 % Normal 10-15 Platelet Count 259 10^3/uL Normal 150-450 Mean Platelet Volume 8.8 fL Normal 7.4-10.4 Abs Neutrophils 5.0 10^3/uL Normal 1.5-7.7 Abs Lymphocytes 2.1 10^3/uL Normal 1.0-4.8 Abs Monocytes 0.6 10^3/uL Normal 0-0.8 Abs Eosinophils 0.3 10^3/uL Normal 0-0.6 Abs Basophils 0.1 10^3/uL Normal 0-0.2 Abs Nucleated RBC 0.0 10^3/uL Granulocyte % 62.1 % Lymphocyte % 25.9 % Monocyte % 7.6 % Eosinophil % 3.6 % Basophil % 0.8 % Nucleated Red Blood Cells % 0.0 Comp Metabolic 11/06/2018 [facility] Sodium 136 mmol/L Normal 135-[address] [place] [address] [phone] Potassium 4.1 mmol/L Normal 3.5-5.0 Chloride 106 mmol/L Normal 101-111 Co2 Carbon Dioxide 24 mmol/L Normal 22-32 Anion Gap 6 mmol/L Normal 2-11 Glucose 92 mg/dL Normal 70-100 Blood Urea Nitrogen 12 mg/dL Normal 6-24 Creatinine 0.78 mg/dL Normal 0.51-0.95 BUN/Creatinine Ratio 15.4 Normal 8-20 Calcium 8.9 mg/dL Normal 8.6-10.3 Total Protein 7.0 g/dL Normal 6.4-8.9 Albumin 4.1 g/dL Normal 3.2-5.2 Globulin 2.9 g/dL Normal 2-4 Albumin/Globulin Ratio 1.4 Normal 1-3 Total Bilirubin 0.20 mg/dL Normal 0.2-1.0 Alkaline Phosphatase 97 U/L Normal 34-104 Alt 14 U/L Normal 7-52 Ast 15 U/L Normal 13-39 Egfr Non- 86.7 >60 Egfr 104.9 >60 11 Laboratory test 11/06/2018 [facility] Complement C3 147 mg/dL 75 - 175 [address] [place] [address] [phone] Complement C4 27 mg/dL 14 - 40 13 Anti Double Stranded Dna AB <12.3 IU/mL 14 Laboratory test 11/06/2018 [facility] C Reactive 5.53 mg/L Normal <8.[address] [place] [address] [phone] Erythrocyte Sed Rate 30 mm/Hr High 0-19 Laboratory test 10/07/2018 [facility] C Reactive 11.08 High < 8.[address] Protein mg/[place] [address] [phone] CBC Auto Diff 10/07/2018 [facility] White Blood 7.6 Normal 3.5 -10.[address] Count 10^3/[place] [address] [phone] Red Blood Count 4.41 10^6/uL Normal 3.70-4.87 Hemoglobin 12.6 g/dL Normal 12.0-16.0 Hematocrit 38 % Normal 35-47 Mean Corpuscular Volume 87 fL Normal 80-97 Mean Corpuscular Hemoglobin 29 pg Normal 27-31 Mean Corpuscular HGB Conc 33 g/dL Normal 31-36 Red Cell Distribution Width 14 % Normal 10-15 Platelet Count 282 10^3/uL Normal 150-450 Mean Platelet Volume 8.9 fL Normal 7.4-10.4 Abs Neutrophils 5.0 10^3/uL Normal 1.5-7.7 Abs Lymphocytes 1.7 10^3/uL Normal 1.0-4.8 Abs Monocytes 0.5 10^3/uL Normal 0-0.8 Abs Eosinophils 0.4 10^3/uL Normal 0-0.6 Abs Basophils 0.1 10^3/uL Normal 0-0.2 Abs Nucleated RBC 0.0 10^3/uL Granulocyte % 65.6 % Lymphocyte % 22.6 % Monocyte % 6.0 % Eosinophil % 5.1 % Basophil % 0.7 % Nucleated Red Blood Cells % 0.0 Comp Metabolic 10/07/2018 [facility] Sodium 136 mmol/L Normal 135-[address] [place] [address] [phone] Potassium 3.9 mmol/L Normal 3.5-5.0 Chloride 108 mmol/L Normal 101-111 Co2 Carbon Dioxide 22 mmol/L Normal 22-32 Anion Gap 6 mmol/L Normal 2-11 Glucose 109 mg/dL High 70-100 Blood Urea Nitrogen 11 mg/dL Normal 6-24 Creatinine 0.76 mg/dL Normal 0.51-0.95 BUN/Creatinine Ratio 14.5 Normal 8-20 Calcium 8.9 mg/dL Normal 8.6-10.3 Total Protein 6.8 g/dL Normal 6.4-8.9 Albumin 3.9 g/dL Normal 3.2-5.2 Globulin 2.9 g/dL Normal 2-4 Albumin/Globulin Ratio 1.3 Normal 1-3 Total Bilirubin 0.20 mg/dL Normal 0.2-1.0 Alkaline Phosphatase 79 U/L Normal 34-104 Alt 11 U/L Normal 7-52 Ast 12 U/L Low 13-39 Egfr Non- 89.4 >60 Egfr 108.1 >60 15 Laboratory test 10/07/2018 [facility] Erythrocyte Sed 28 mm/Hr High 0-[address] [place] [address] [phone] 1 Because ethnic data is not always [...] 5 Kidney failure <15 (or dialysis) 2 Specimen Hemolyzed. Result may not be valid. Unable to report test result due to hemolysis. 3 Unable to report test result due to hemolysis. 4 REFERENCE VALUE 6:00-10:30 AM Collection 0.121-1.065 mcg/dL ADDITIONAL INFORMATION This test was developed and its performance characteristics determined by [facility] in a manner consistent with CLIA requirements. This test has not been cleared or approved by the U.S. Food and Drug Administration. Test Performed by: [facility] [address] [place] [address] Magazine Feeder: Thaddeus Robertson M.D. Ph.D.; CLIA# [id number] 5 Because ethnic data is not always readily [...] 15-29 5 Kidney failure <15 (or dialysis) 6 Test Performed by: [facility] [place] [id number] [employer]: Thaddeus Robertson M.D. Ph.D.; CLIA# [id number] 7 Because ethnic data is not always [...] 5 Kidney failure <15 (or dialysis) 9 Normally menstruating females - Follicular phase 3 - 9 - Mid-cycle peak 4 - 23 - Luteal phase 1 - 6 Postmenopausal females 16 - 114 10 Normally menstruating females - Follicular Phase 1 - 18 - Mid-Cycle Peak 24 - 105 - Luteal Phase 0.6 - 20 Postmenopausal females 15 - 62 11 Because ethnic data is not always [...] <15 (or dialysis) 12 Test Performed by: [facility] [address] [employer] [place] [address] 13 Test Performed by: [facility] [address] [place] [address] 14 REFERENCE VALUE <30.0 (Negative) Test Performed by: [facility] [place] [address] [place] [address] 15 Because ethnic data is not always [...] 5 Kidney failure <15 (or dialysis) Procedures Date Code Description Status 02/16/2019 00421 Carpal Tunnel Release Completed 02/16/2019 99424 Carpal Tunnel Release Completed Medical Devices Description No Information Available Encounters Type Date Location Provider Dx Diagnosis Office Visit 02/04/2019 [facility] Bette Handley, G56.01 Carpal tunnel 8:30a at [place] MMatthew syndrome, right upper limb Office Visit 01/28/2019 Rheumatology Rudy Arreguin M32.9 Systemic lupus 10:40a [facility] erythematosus, unspecified E83.51 Hypocalcemia Z79.899 Other group home (current) drug therapy G56.01 Carpal tunnel syndrome, right upper limb Office Visit 12/16/2018 Rheumatology Rudy Sanford2.9 Systemic lupus 11:20a [facility] M.D. erythematosus, unspecified M25.572 Pain in left ankle and joints of left foot Z79.899 Other group home (current) drug therapy B37.9 Candidiasis, unspecified Office 11/26/2018 [facility] Louie G43.109 Migraine with Visit 1:00p Tj Fine N.[place] aura, not intractable, w/o status migrainosus M32.9 Systemic lupus erythematosus, unspecified R20.2 Paresthesia of skin Assessments Date Code Description Provider 03/22/2019 G56.01 Carpal tunnel syndrome, right upper limb Bette Handley M.D. 02/24/2019 G56.01 Carpal tunnel syndrome, right upper limb Cadence Anthony, [facility] 02/24/2019 Z48.02 Encounter for removal of sutures Cadence Anthony, [facility] 02/16/2019 G56.01 Carpal tunnel syndrome, right upper limb Cadence Anthony, [facility]- 02/16/2019 G56.01 Carpal tunnel syndrome, right upper limb Bette Handley M.D. 02/04/2019 G56.01 Carpal tunnel syndrome, right upper limb Bette Handley M.D. 01/28/2019 M32.9 Systemic lupus erythematosus, unspecified Rudy Arreguin M.D. 01/28/2019 E83.51 Hypocalcemia Rudy Arreguin M.D. 01/28/2019 Z79.899 Other supervisor intermediates (current) drug therapy Rudy Arreguin M.D. 01/28/2019 G56.01 Carpal tunnel syndrome, right upper limb Rudy Arreguin M.D. 12/16/2018 M32.9 Systemic lupus erythematosus, unspecified Rudy Arreguin M.D. 12/16/2018 M25.572 Pain in left ankle and joints of left foot Rudy Arreguin M.D. 12/16/2018 Z79.899 Other group home (current) drug therapy Rudy Arreguin M.D. 12/16/2018 B37.9 Candidiasis, unspecified Rudy Arreguin M.D. 11/26/2018 G43.109 Migraine with aura, not intractable, without Louie Fine, N.Wanda status migrainosus 11/26/2018 M32.9 Systemic lupus erythematosus, unspecified Louie Fine N.Wanda 11/26/2018 R20.2 Paresthesia of skin Louie Fine N.[place]anda Plan of Treatment Future Appointment(s):03/31/2019 1:00 pm - Rudy Arreguin M.D. at [facility]03/22/2019 - Bette Handley M.D.G56.01 Carpal tunnel syndrome, right upper limbFollow up:Follow up: As needed Functional Status Description No Information Available Mental Status Description No Information Available Referrals Refer to Dr Reason for Referral Status Appt Date Bette Handley M.D. Please evaluate for carpal tunnel release Sent [address] [place] [address] [place] [address] [phone] Gauri Araujo DPM Please evaluate and treat patient with a Sent bone spur in the plantar region of her foot [address] [facility] [facility] [address] [phone]
--- OUTSIDE RECORDS SUMMARY | 2019-04-30 07:43 | XMS REPORT | Continuity of Care Document ---
:1990 External Reference #:[id number] Author Name Marylu Kunz (transmitted by agent of provider Oriana Blanco) Address [address] [place] [address] Care Team Providers Name Role Phone Sonali Pro MD - Family Care Team Information Transport Medic [phone] Medicine Problems Description No Information Available Social History Type Date Description Comments Sex Unknown Tobacco Use Start: Unknown Never Smoked Cigarettes Smoking Status Reviewed: 04/16/19 Never Smoked Cigarettes ETOH Use Never used alcohol Tobacco Use Start: Unknown Patient has never smoked Exercise Type/Frequency She cannot exercise given her chronic pain Exercise Type/Frequency Exercises regularly Allergies, Adverse Reactions, Alerts Active Allergies Reaction Severity Comments Date Bactrim 03/11/2018 Medications Active Medications SIG Qnty Indications Ordering Date Provider Percocet take one 60tabs Rudy Arreguin, 03/31/2019 7.5-325mg capsule/tablet by M.D. Tablets mouth twice daily as needed for pain Lidocaine Apply 1 Patch To 30units Rudy Arreguin, 03/24/2019 5% Patches Affected Area 12 M.D. Hours On, 12 Hours Off Mattress Tempur Pedic for 1units Rudy Arreguin, 01/28/2019 Pad/35"X74"/Egg the spine OA and M.D. Crate 2" use daily for Eggcr/2" mattress support Misc Dx Lumbar OA 722.52 Ondansetron dissolve one 40tabs Rudy Arreguin, 12/18/2018 4mg tablet by mouth M.D. Tablets Dispers twice daily as needed for nausea. Methotrexate Take 3 Tablets By 14tabs Rudy Arreguin, 12/16/2018 2.5mg Mouth Once A Week M.D. Tablets On Folic Acid take one 90tabs Rudy Arreguin, 12/16/2018 1mg capsule/tablet M.D. Tablets daily by mouth Fast Acting B12 sublingual daily 90tabs Rudy Arreguin, 11/20/2018 M.D. 2500mcg Tablets Sub Meloxicam take 1 tablet by 60tabs Rudy Arreguin, 09/22/2018 7.5mg mouth twice daily M.D. Tablets as needed for pain, avoid other nsaids Plaquenil take 2 tablets by 180tabs Rudy Arreguin, 09/02/2018 200mg mouth daily M.D. Tablets Benlysta IV Rudy Arreguin, 03/16/2018 Solution M.D. Rec Adderall one by mouth twice Unknown 20mg Tablets a day Buspirone HCL Unknown 10mg Tablets Prazosin HCL 3mg take one Unknown 2mg capsule by mouth Capsules at bedtime Lyrica take 1 capsule by 90caps Rudy Arreguin, 100mg Capsules mouth 3 times a M.D. 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 04/16/2019 Strength neuropathic pain 16% Liquid Methocarbamol take 1 or 2 at 30tabs Rudy Arreguin, 03/23/2019 - 500mg night as needed for M.D. Unknown Tablets spasms Percocet 1 tab by mouth 15tabs Bette Handley, 02/10/2019 - 5-325mg every 4-6 hours as M.D. 03/31/2019 Tablets needed pain [facility] B6 take one 60tabs Rudy Camilor, 01/28/2019 - 100mg Tablets capsule/tablet M.D. Unknown daily by mouth Voltaren apply 2 grams twice 200units Rudy Arreguin, 12/16/2018 - 1% Gel daily as needed for M.D. Unknown pain to the left ankle Tramadol HCL take one 60tabs Rudy Diazdor, 12/16/2018 - 50mg capsule/tab every 8 M.D. 03/31/2019 Tablets hours (total of 3 per day) Immunizations CPT Code Status Date Vaccine Reaction Lot # 36826 Given 05/07/2018 Pneumococcal Conjugate no immediate reaction [id number] Vaccine 13 Valent For noted Intramuscular Use Vital Signs Date Vital Result Comment 04/16/2019 1:50pm Height 65 inches 5'5" Weight 291.00 lb Heart Rate 101 /min BP Systolic 135 mmHg BP Diastolic 93 mmHg O2 % BldC Oximetry 100 % BMI (Body Mass Index) 48.4 kg/m2 Last Menstrual Period [id number] 03/31/2019 1:23pm Height 65 inches 5'5" Weight 291.38 lb Heart Rate 88 /min BP Systolic 118 mmHg BP Diastolic 80 mmHg Body Temperature 96.7 F Pain Level 9 O2 % BldC Oximetry 98 % BMI (Body Mass Index) 48.5 kg/m2 Results Test Acquired Date Facility Test Result H/L Range Note Drug Screen 03/31/2019 [facility] Urine None Detected None Urine Pain [address] [place] [address] Screen [phone] Urine Oxycodone Screen None Detected None Detect Urine Fentanyl Screen None Detected None Detect Urine Methadone Screen None Detected None Detect Urine Buprenorphine Screen None Detected None Detect Urine Amphetamine Screen Presumptive Posi <SEE NOTE> Abnormal None Detect 1 Urine Barbiturates Screen None Detected None Detect Urine Benzodiazepine Screen None Detected None Detect Urine Cannabinoids Screen None Detected None Detect Urine Cocaine Screen None Detected None Detect Urine Opiates Screen None Detected None Detect Urine Phencyclidine Screen None Detected None Detect 2 Laboratory 03/25/2019 [facility] TSH (Thyroid 1.14 Normal 0.34 -5.60 test finding [address] Stim Horm) mcIU/[place] [address] [phone] Cortisol <pending> Comp Metabolic 03/25/2019 [facility] Sodium 136 mmol/L Normal 135-[address] [place] [address] [phone] Potassium 4.1 mmol/L Normal 3.5-5.0 Chloride 103 mmol/L Normal 101-111 Co2 Carbon Dioxide 27 mmol/L Normal 22-32 Anion Gap 6 mmol/L Normal 2-11 Glucose 58 mg/dL Low 70-100 Blood Urea Nitrogen 14 mg/dL Normal 6-24 Creatinine 0.81 mg/dL Normal 0.51-0.95 BUN/Creatinine Ratio 17.3 Normal 8-20 Calcium 8.9 mg/dL Normal 8.6-10.3 Total Protein 7.1 g/dL Normal 6.4-8.9 Albumin 4.1 g/dL Normal 3.2-5.2 Globulin 3.0 g/dL Normal 2-4 Albumin/Globulin Ratio 1.4 Normal 1-3 Total Bilirubin 0.30 mg/dL Normal 0.2-1.0 Alkaline Phosphatase 92 U/L Normal 34-104 Alt 27 U/L Normal 7-52 Ast 17 U/L Normal 13-39 Egfr Non- 83.0 >60 Egfr 100.5 >60 3 Laboratory test 03/25/2019 [facility] C Reactive 5.87 mg/L Normal <8.[address] [place] [address] [phone] Prolactin 5.3 ng/mL Normal 1.0-25.0 Urinalysis Profile 03/25/2019 [facility] Urine Color Colorless [address] [place] [address] [phone] Urine Appearance Clear Urine Specific [place] 1.002 Low 1.010-1.030 Urine pH 6.0 Normal 5-9 Urine Urobilinogen Negative Negative Urine Ketones Negative Negative Urine Protein Negative Negative Urine Leukocytes Negative Negative Urine Blood Negative Negative Urine Nitrite Negative Negative Urine Bilirubin Negative Negative Urine Glucose Negative Negative CBC Auto 03/25/2019 [facility] White Blood 5.7 10^3/uL Normal 3.5-10.[address] [place] [address] [phone] Red Blood Count 4.40 10^6/uL Normal 3.70-4.87 Hemoglobin 13.1 g/dL Normal 12.0-16.0 Hematocrit 39 % Normal 35-47 Mean Corpuscular Volume 89 fL Normal 80-97 Mean Corpuscular Hemoglobin 30 pg Normal 27-31 Mean Corpuscular HGB Conc 33 g/dL Normal 31-36 Red Cell Distribution Width 15 % Normal 10-15 Platelet Count 287 10^3/uL Normal 150-450 Mean Platelet Volume 8.5 fL Normal 7.4-10.4 Abs Neutrophils 3.5 10^3/uL Normal 1.5-7.7 Abs Lymphocytes 1.5 10^3/uL Normal 1.0-4.8 Abs Monocytes 0.5 10^3/uL Normal 0-0.8 Abs Eosinophils 0.2 10^3/uL Normal 0-0.6 Abs Basophils 0.0 10^3/uL Normal 0-0.2 Abs Nucleated RBC 0.0 10^3/uL Granulocyte % 61.9 % Lymphocyte % 26.6 % Monocyte % 8.1 % Eosinophil % 2.7 % Basophil % 0.7 % Nucleated Red Blood Cells % 0.0 Laboratory test 03/25/2019 [facility] Erythrocyte Sed 26 mm/Hr High 0-[address] [place] [address] [phone] Laboratory test 02/25/2019 [facility] Erythrocyte Sed 17 mm/Hr Normal 0-[address] [place] [address] [phone] CBC Auto Diff 02/25/2019 [facility] White Blood 7.2 Normal 3.5 -10.[address] Count 10^3/[place] [address] [phone] Red Blood Count 4.50 10^6/uL Normal 3.70-4.87 [...] Blood Cells % 0.0 Laboratory test 02/25/2019 [facility] C Reactive 6.22 mg/L Normal <8.[address] [place] [address] [phone] Comp Metabolic 02/25/2019 [facility] Sodium 136 Normal 135- [address] mmol/[place] [address] [phone] Chloride 101 mmol/L Normal 101-111 Co2 Carbon [...] Egfr Non- 78.5 >60 Egfr 95.0 >60 4 Potassium 4.5 mmol/L Normal 3.5-5.0 5 Anion Gap 5 mmol/L Normal 2-11 Ast 21 U/L Normal 13-39 6 Laboratory test 01/28/2019 [facility] C Reactive 7.07 mg/L Normal <8.[address] [place] [address] [phone] Pthi 01/28/2019 [facility] Calcium (PTH 9.4 mg/dL Normal 8.6- 10.[address] Intact) [place] [address] [phone] PTH Intact 50.8 pg/mL Normal 12-88 Laboratory 01/28/2019 [facility] TSH (Thyroid 1.28 Normal 0.34 -5.[address] Stim Horm) mcIU/[place] [address] [phone] Free Cortisol Serum 0.389 g/dL 7 CBC Auto 01/28/2019 [facility] White Blood 6.0 10^3/uL Normal 3.5-10.[address] [place] [address] [phone] Red Blood Count 4.56 10^6/uL Normal 3.70-4.87 [...] Blood Cells % 0.0 Comp Metabolic 01/28/2019 [facility] Sodium 138 mmol/L Normal 135-[address] [place] [address] [phone] Potassium 3.8 mmol/L Normal 3.5-5.0 Chloride 107 [...] Egfr Non- 76.4 >60 Egfr 92.5 >60 8 Laboratory test 01/28/2019 [facility] Aldolase 6.0 U/L <7.7 [address] [place] [address] [phone] Laboratory test 12/31/2018 [facility] Erythrocyte Sed 23 High 0-[address] Rate mm/[place] [address] [phone] CBC Auto Diff 12/31/2018 [facility] White Blood 5.3 Normal 3.5 -10.[address] Count 10^3/[place] [address] [phone] Red Blood Count 4.25 10^6/uL Normal 3.70-4.87 [...] Blood Cells % 0.1 Laboratory test 12/31/2018 [facility] C Reactive 5.51 mg/L Normal <8.[address] [place] [address] [phone] Comp Metabolic 12/31/2018 [facility] Sodium 138 Normal 135- [address] mmol/[place] [address] [phone] Potassium 3.8 mmol/L Normal 3.5-5.0 Chloride 108 [...] Egfr Non- 84.2 >60 Egfr 101.9 >60 10 CBC Auto 12/03/2018 [facility] White Blood 7.0 10^3/uL Normal 3.5-10.[address] [place] [address] [phone] Red Blood Count 4.50 10^6/uL Normal 3.70-4.87 [...] Red Blood Cells % 0.0 Comp Metabolic 12/03/2018 [facility] Sodium 139 mmol/L Normal 135-[address] [place] [address] [phone] Potassium 4.1 mmol/L Normal 3.5-5.0 Chloride 107 [...] Egfr Non- 84.2 >60 Egfr 101.9 >60 11 Laboratory test 12/03/2018 [facility] C Reactive 7.51 mg/L Normal <8.[address] [place] [address] [phone] Erythrocyte Sed Rate 30 mm/Hr High 0-19 FSH And LH 12/03/2018 [facility] FSH (Follicle Stim 9.6 mIU/mL [address] Hormone) [place] [address] [phone] LH (Lutenizing Hormone) 4.1 mIU/mL 13 CBC Auto 11/06/2018 [facility] White Blood 8.0 10^3/uL Normal 3.5-10.[address] [place] [address] [phone] Red Blood Count 4.58 10^6/uL Normal 3.70-4.87 [...] Blood Cells % 0.0 Comp Metabolic 11/06/2018 [facility] Sodium 136 mmol/L Normal 135-[address] [place] [address] [phone] Potassium 4.1 mmol/L Normal 3.5-5.0 Chloride 106 [...] Egfr Non- 86.7 >60 Egfr 104.9 >60 14 Laboratory test 11/06/2018 [facility] Complement C3 147 mg/dL 75 - 175 [address] [place] [address] [phone] Complement C4 27 mg/dL 14 - 40 16 Anti Double Stranded Dna AB <12.3 IU/mL 17 Laboratory test 11/06/2018 [facility] C Reactive 5.53 mg/L Normal <8.[address] [place] [address] [phone] Erythrocyte Sed Rate 30 mm/Hr High 0-19 1 Presumptive Positive Presumptive positive results are unconfirmed. 2 The specimen was tested at the listed cutoffs: Drug Class Test level (ng/mL) Hydrocodone 300 Oxycodone 100 Fentanyl 1 Methadone 150 Buprenorphine 5 Amphetamines 500 Barbiturates 200 Benzodiazepines 200 Cocaine 150 Cannabinoids 50 Opiates 300 PCP 25 Specimen was received without chain of custody. Results should be used for medical purposes only. 3 Because ethnic data is not always readily [...] 15-29 5 Kidney failure <15 (or dialysis) 4 Because ethnic data is not always [...] 5 Kidney failure <15 (or dialysis) 5 Specimen Hemolyzed. Result may not be valid. Unable to report test result due to hemolysis. 6 Unable to report test result due to hemolysis. 7 REFERENCE VALUE 6:00-10:30 AM Collection 0.121-1.065 mcg/dL ADDITIONAL INFORMATION This test was developed and its performance characteristics determined by [facility] in a manner consistent with CLIA requirements. This test has not been cleared or approved by the U.S. Food and Drug Administration. Test Performed by: [facility] - [address] [address] Food Assembler: Thaddeus Robertson M.D. Ph.D.; CLIA# [id number] 8 Because ethnic data is not always [...] 5 Kidney failure <15 (or dialysis) 9 Test Performed by: [place] [address] Food Assembler: Thaddeus Robertson M.D. Ph.D.; CLIA# [id number] 10 Because ethnic data is not always [...] 5 Kidney failure <15 (or dialysis) 12 Normally menstruating females - Follicular phase 3 - 9 - Mid-cycle peak 4 - 23 - Luteal phase 1 - 6 Postmenopausal females 16 - 114 13 Normally menstruating females - Follicular Phase 1 - 18 - Mid-Cycle Peak 24 - 105 - Luteal Phase 0.6 - 20 Postmenopausal females 15 - 62 14 Because ethnic data is not always readily [...] 15-29 5 Kidney failure <15 (or dialysis) 15 Test Performed by: [facility] [employer] [facility] [place] [address] 16 Test Performed by: [facility] [place] [address] 17 REFERENCE VALUE <30.0 (Negative) Test Performed by: [facility] [employer] [place] [address] Procedures Date Code Description Status 02/16/2019 27292 Carpal Tunnel Release Completed 02/16/2019 99455 Carpal Tunnel Release Completed Medical Devices Description No Information Available Encounters Type Date Location Provider Dx Diagnosis Office Visit 03/31/2019 [facility] Rudy Arreguin M54.5 Low back pain 1:00p [facility] M32.9 Systemic lupus erythematosus, unspecified Z79.899 Other nursing home (current) drug therapy N92.6 Irregular menstruation, unspecified E16.2 Hypoglycemia, unspecified Office Visit 02/04/2019 [facility] Bette G56.01 Carpal tunnel 8:30a at [facility] Handley M.D. 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 aura, not intractable, w/o status migrainosus M32.9 Systemic lupus erythematosus, unspecified R20.2 Paresthesia of skin Assessments Date Code Description Provider 04/16/2019 N92.1 Excessive and frequent menstruation with JAYE Kunz irregular cycle 03/31/2019 M54.5 Low back pain Rudy Arreguin M.D. 03/31/2019 M32.9 Systemic lupus erythematosus, unspecified Rudy Arreguin M.D. 03/31/2019 Z79.899 Other nursing home (current) drug therapy Rudy Arreguin M.D. 03/31/2019 N92.6 Irregular menstruation, unspecified Rudy Arreguin M.D. 03/31/2019 E16.2 Hypoglycemia, unspecified Rudy Arreguin M.D. 03/22/2019 G56.01 Carpal tunnel syndrome, right upper limb Bette Handley M.D. 03/22/2019 Z47.89 Encounter for other orthopedic aftercare Bette Handley M.D. 02/24/2019 G56.01 Carpal tunnel syndrome, right upper limb Cadence Anthony, [facility] 02/24/2019 Z48.02 Encounter for removal of sutures Cadence Anthony, [facility] 02/16/2019 G56.01 Carpal tunnel syndrome, right upper limb Cadence Thompsonting, [facility] 02/16/2019 G56.01 Carpal tunnel syndrome, right upper limb Bette Handley M.D. 02/04/2019 G56.01 Carpal tunnel syndrome, right upper limb Bette Handley M.D. 01/28/2019 M32.9 Systemic lupus erythematosus, unspecified Rudy Arreguin M.D. 01/28/2019 E83.51 Hypocalcemia Rudy Arreguin M.D. 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 01/28/2019 G56.01 Carpal tunnel syndrome, right upper limb Rudy Arreguin M.D. 12/16/2018 M32.9 Systemic lupus erythematosus, unspecified Rudy Arreguin M.D. 12/16/2018 M25.572 Pain in left ankle and joints of left foot Rudy Arreguin M.D. 12/16/2018 Z79.899 Other nursing home (current) drug therapy Rudy Arreguin M.D. 12/16/2018 B37.9 Candidiasis, unspecified Rudy Arreguin M.D. 11/26/2018 G43.109 Migraine with aura, not intractable, Louie Fine, N.P. without status migrainosus 11/26/2018 M32.9 Systemic lupus erythematosus, unspecified Louie Fine, N.P. 11/26/2018 R20.2 Paresthesia of skin Louie Fine, N.P. Plan of Treatment Future Appointment(s):06/18/2019 10:30 am - Rosetta Esquivel MD at [facility]05/31/2019 11:00 am - Rosetta Esquivel MD at [facility]06/09/2019 11:30 am - Rosetta Esquivel MD at [facility] [place]2019 1:40 pm - Rudy Arreguin M.D. at [facility] [place]04/16/2019 - JAYE Kunz-CdeN92.1 Excessive and frequent menstruation with irregular cycleNew Labs:CBC Auto Diff, Ordered: 04/16/19Ferritin, Ordered: Recommendations:Continue taking iron as you have been Functional Status Description No Information Available Mental Status Description No Information Available Referrals Refer to Reason for Referral Status Appt Date Rosetta Esquivel MD Please evaluate patient with severe back pain, Sent history of irregular cycles; she will need a sensitive evaluation and examination given prior trauma [address], [address] [place] [id number] [phone] Betet Handley M.D. Please evaluate for carpal tunnel release Sent [address] [place] [id number] [phone]
--- OUTSIDE RECORDS SUMMARY | 2019-04-30 07:43 | XMS REPORT | Continuity of Care Document ---
:1990 External Reference #:[id number] Author Name Rudy Arreguin M.D. (transmitted by agent of provider Susannah Sauceda) Address [address] [place] [address] Care Team Providers Name Role Phone Sonali Pro MD - Family Care Team Information Body Man [phone] Medicine Problems Description No Information Available Social History Type Date Description Comments Sex Unknown ETOH Use Never used alcohol Tobacco Use Start: Unknown Patient has never smoked Smoking Status Reviewed: 03/31/19 Patient has never smoked Exercise Type/Frequency Does not exercise Exercise Type/Frequency She cannot exercise given her chronic pain Allergies, Adverse Reactions, Alerts Active Allergies Reaction Severity Comments Date Bactrim 03/11/2018 Medications Active Medications SIG Qnty Indications Ordering Date Provider Percocet take one 60tabs Rudy Arreguin, 03/31/2019 7.5-325mg capsule/tablet by M.D. Tablets mouth twice daily as needed for pain Aspercreme Max apply twice daily 1units Rudy Arreguin, 03/24/2019 Roll-On Arthritis to the legs to M.D. Strength help neuropathic 16% Liquid pain Lidocaine Apply 1 Patch To 30units Rudy Arreguin, 03/24/2019 5% Patches Affected Area 12 M.D. Hours On, 12 Hours Off Methocarbamol take 1 or 2 at 30tabs Rudy Arreguin, 03/23/2019 500mg night as needed M.D. Tablets for spasms [facility] B6 take one 60tabs Rudy Arreguin, 01/28/2019 100mg Tablets capsule/tablet M.D. daily by mouth Mattress Tempur Pedic for 1units Rudy Arreguin, 01/28/2019 Pad/35"X74"/Egg the spine OA and M.D. Crate 2" use daily for Eggcr/2" mattress support [facility] [place] [facility] Lumbar OA 722.52 Ondansetron dissolve one 40tabs Rudy Arreguin, 12/18/2018 4mg tablet by mouth M.D. Tablets Dispers twice daily as needed for nausea. Voltaren apply 2 grams 200units Rudy Arreguin, 12/16/2018 1% Gel twice daily as M.D. needed for pain to the left ankle Methotrexate Take 3 Tablets By 14tabs Rudy Arreguin, 12/16/2018 2.5mg Mouth Once A Week M.D. Tablets On Folic Acid take one 90tabs Rudy Arreguin, 12/16/2018 1mg capsule/tablet M.D. Tablets daily by mouth Fast Acting B12 sublingual daily 90tabs Rudy Arreguin, 11/20/2018 M.D. 2500mcg Tablets Sub Meloxicam Take 1 Tablet By 60tabs Rudy Arreguin, 09/22/2018 7.5mg Mouth Twice Daily M.D. Tablets as Needed For Pain, Avoid Other NSAIDS Plaquenil take 2 tablets by 180tabs Rudy Arreguin, 09/02/2018 200mg mouth daily M.D. Tablets Nystatin use between the 15gm B37.9 Rudy Arreguin, 05/07/2018 breast twice a day M.D. [id number] until symptoms Ointment resolved Benlysta IV Rudy Arreguin, 03/16/2018 Solution M.D. Rec Adderall XR 1 by mouth every Unknown 30mg Caps day ER 24HR Abilify 1 by mouth every Unknown 20mg Tablets day Gabapentin 1 by mouth three 270caps Zsofia Osvaldo, 300mg times a day [employer] Capsules Trintellix 1 by mouth every Unknown 10mg day Tablets Magnesium Unknown 250mg Tablets Vitamin D by mouth everyday Unknown 1000Unit Tablets Klonopin one tab four times Unknown 1mg Tablets daily Turmeric Unknown 400mg Capsules Iron 1 by mouth every Unknown 325(65Fe) mg day Tablets Lyrica take 1 capsule by 90caps Rudy Arreguin, 100mg Capsules mouth 3 times a M.D. day B Complex Unknown Capsules History Medications Percocet 1 tab by mouth 15tabs Bette Handley, 02/10/2019 - 5-325mg every 4-6 hours M.D. 03/31/2019 Tablets as needed pain Tramadol HCL take one 60tabs Rudy Arreguin M.D. 12/16/2018 - 50mg capsule/tab every 03/31/2019 Tablets 8 hours (total of 3 per day) Immunizations CPT Code Status Date Vaccine Reaction Lot # [id number] Given 05/07/2018 Pneumococcal Conjugate no immediate reaction [id number] Vaccine 13 Valent For noted Intramuscular Use Vital Signs Date Vital Result Comment 03/31/2019 1:23pm Height 65 inches 5'5" Weight 291.38 lb Heart Rate 88 /min BP Systolic 118 mmHg BP Diastolic 80 mmHg Body Temperature 96.7 F Pain Level 9 O2 % BldC Oximetry 98 % BMI (Body Mass Index) 48.5 kg/m2 03/22/2019 9:02am Height 65 inches 5'5" Weight 287.00 lb Heart Rate 84 /min BP Systolic Sitting 148 mmHg BP Diastolic Sitting 78 mmHg BMI (Body Mass Index) 47.8 kg/m2 Results Test Acquired Date Facility Test Result H/L Range Note Laboratory test 03/25/2019 [facility] TSH 1.14 Normal 0.34- 5.60 finding 101 [facility] (Thyroid mcIU/[place] [address] Stim [phone] Horm) Cortisol <pending> Comp Metabolic 03/25/2019 [facility] Sodium 136 mmol/L Normal 135-145 Panel 101 [place], [place] [id number] [phone] Potassium 4.1 mmol/L Normal 3.5-5.0 Chloride 103 [...] Egfr Non- 83.0 >60 Egfr 100.5 >60 1 Laboratory test 03/25/2019 [facility] C Reactive 5.87 mg/L Normal <8.[address] [place] [address] [phone] Prolactin 5.3 ng/mL Normal 1.0-25.0 Urinalysis Profile 03/25/2019 [facility] Urine Color Colorless [address] [place] [address] [phone] Urine Appearance Clear Urine Specific [place] 1.002 Low 1.010-1.030 Urine pH 6.0 Normal 5-9 Urine Urobilinogen Negative Negative Urine Ketones Negative Negative Urine Protein Negative Negative Urine Leukocytes Negative Negative Urine Blood Negative Negative Urine Nitrite Negative Negative Urine Bilirubin Negative Negative Urine Glucose Negative Negative CBC Auto 03/25/2019 [facility] White Blood 5.7 10^3/uL Normal 3.5-10.[address] [place] [address] [phone] Red Blood Count 4.40 10^6/uL Normal 3.70-4.87 [...] Blood Cells % 0.0 Laboratory test 03/25/2019 [facility] Erythrocyte Sed 26 mm/Hr High 0-[address] [place] [address] [phone] Laboratory test 02/25/2019 [facility] Erythrocyte Sed 17 mm/Hr Normal 0-[address] [place] [address] [phone] CBC Auto Diff 02/25/2019 [facility] White Blood 7.2 Normal 3.5 -10.[address] Count 10^3/[place] [address] [phone] Red Blood Count 4.50 10^6/uL Normal 3.70-4.87 [...] Blood Cells % 0.0 Laboratory test 02/25/2019 [facility] C Reactive 6.22 mg/L Normal <8.[address] [place] [address] [phone] Comp Metabolic 02/25/2019 [facility] Sodium 136 Normal 135- [address] mmol/L [place], [place] [id number] [phone] Chloride 101 mmol/L Normal 101-111 Co2 Carbon [...] Egfr Non- 78.5 >60 Egfr 95.0 >60 2 Potassium 4.5 mmol/L Normal 3.5-5.0 3 Anion Gap 5 mmol/L Normal 2-11 Ast 21 U/L Normal 13-39 4 Laboratory test 01/28/2019 [facility] C Reactive 7.07 mg/L Normal <8.[address] [place] [address] [phone] Pthi 01/28/2019 [facility] Calcium (PTH 9.4 mg/dL Normal 8.6- 10.3 DRIVE Intact) [place], [place] [id number] [phone] PTH Intact 50.8 pg/mL Normal 12-88 Laboratory 01/28/2019 [facility] TSH (Thyroid 1.28 Normal 0.34 -5.60 test finding [address] Stim Horm) mcIU/mL [place], [place] [id number] [phone] Free Cortisol Serum 0.389 g/dL 5 CBC Auto 01/28/2019 [facility] White Blood 6.0 10^3/uL Normal 3.5-10.[address] [place] [address] [phone] Red Blood Count 4.56 10^6/uL Normal 3.70-4.87 [...] Blood Cells % 0.0 Comp Metabolic 01/28/2019 [facility] Sodium 138 mmol/L Normal 135-145 Panel [address] [place] [address] [phone] Potassium 3.8 mmol/L Normal 3.5-5.0 Chloride 107 [...] Egfr Non- 76.4 >60 Egfr 92.5 >60 6 Laboratory test 01/28/2019 [facility] Aldolase 6.0 U/L <7.7 7 finding [address] [place] [address] [phone] Laboratory test 12/31/2018 [facility] Erythrocyte Sed 23 High 0-[address] Rate mm/[place] [address] [phone] CBC Auto Diff 12/31/2018 [facility] White Blood 5.3 Normal 3.5 -10.[address] Count 10^3/[place] [address] [phone] Red Blood Count 4.25 10^6/uL Normal 3.70-4.87 [...] Blood Cells % 0.1 Laboratory test 12/31/2018 [facility] C Reactive 5.51 mg/L Normal <8.[address] [place] [address] [phone] Comp Metabolic 12/31/2018 [facility] Sodium 138 Normal 135- [address] mmol/[place] [address] [phone] Potassium 3.8 mmol/L Normal 3.5-5.0 Chloride 108 [...] Non- 84.2 >60 Egfr 101.9 >60 8 Comp Metabolic 12/03/2018 [facility] Sodium 139 mmol/L Normal 135-[address] [place] [address] [phone] Potassium 4.1 mmol/L Normal 3.5-5.0 Chloride 107 [...] Egfr Non- 84.2 >60 Egfr 101.9 >60 9 Laboratory test 12/03/2018 [facility] C Reactive 7.51 mg/L Normal <8.[address] [place] [address] [phone] Erythrocyte Sed Rate 30 mm/Hr High 0-19 FSH And LH 12/03/2018 [facility] FSH (Follicle Stim 9.6 mIU/mL [address] Hormone) [place] [address] [phone] LH (Lutenizing Hormone) 4.1 mIU/mL 11 CBC Auto 12/03/2018 [facility] White Blood 7.0 10^3/uL Normal 3.5-10.[address] [place] [address] [phone] Red Blood Count 4.50 10^6/uL Normal 3.70-4.87 [...] Blood Cells % 0.0 CBC Auto 11/06/2018 [facility] White Blood 8.0 10^3/uL Normal 3.5-10.[address] [place] [address] [phone] Red Blood Count 4.58 10^6/uL Normal 3.70-4.87 [...] Blood Cells % 0.0 Comp Metabolic 11/06/2018 [facility] Sodium 136 mmol/L Normal 135-[address] [place] [address] [phone] Potassium 4.1 mmol/L Normal 3.5-5.0 Chloride 106 [...] Egfr Non- 86.7 >60 Egfr 104.9 >60 12 Laboratory test 11/06/2018 [facility] Complement C3 147 mg/dL 75 - 175 [address] [place] [address] [phone] Complement C4 27 mg/dL 14 - 40 14 Anti Double Stranded Dna AB <12.3 IU/mL 15 Laboratory test 11/06/2018 [facility] C Reactive 5.53 mg/L Normal <8.[address] [place] [address] [phone] Erythrocyte Sed Rate 30 mm/Hr High 0-19 Laboratory test 10/07/2018 [facility] C Reactive 11.08 High < 8.[address] Protein mg/[place] [address] [phone] CBC Auto Diff 10/07/2018 [facility] White Blood 7.6 Normal 3.5 -10.[address] Count 10^3/[place] [address] [phone] Red Blood Count 4.41 10^6/uL Normal 3.70-4.87 [...] Blood Cells % 0.0 Comp Metabolic 10/07/2018 [facility] Sodium 136 mmol/L Normal 135-[address] [place] [address] [phone] Potassium 3.9 mmol/L Normal 3.5-5.0 Chloride 108 [...] Egfr Non- 89.4 >60 Egfr 108.1 >60 16 Laboratory test 10/07/2018 [facility] Erythrocyte Sed 28 mm/Hr High 0-[address] Rate [place] [address] [phone] 1 Because ethnic data is not always [...] 5 Kidney failure <15 (or dialysis) 3 Specimen Hemolyzed. Result may not be valid. Unable to report test result due to hemolysis. 4 Unable to report test result due to hemolysis. 5 REFERENCE VALUE 6:00-10:30 AM Collection 0.121-1.065 mcg/dL ADDITIONAL INFORMATION This test was developed and its performance characteristics determined by [facility] in a manner consistent with CLIA requirements. This test has not been cleared or approved by the U.S. Food and Drug Administration. Test Performed by: [facility] [address] [place] [id number] Equipment Validation Engineer: Thaddeus Robertson M.D. Ph.D.; CLIA# [id number] 6 Because ethnic data is not always [...] 5 Kidney failure <15 (or dialysis) 7 Test Performed by: [facility] - [address] [address] Equipment Validation Engineer: Thaddeus Robertson M.D. Ph.D.; CLIA# [id number] 8 Because ethnic data is not always [...] 5 Kidney failure <15 (or dialysis) 10 Normally menstruating females - Follicular phase 3 - 9 - Mid-cycle peak 4 - 23 - Luteal phase 1 - 6 Postmenopausal females 16 - 114 11 Normally menstruating females - Follicular Phase 1 - 18 - Mid-Cycle Peak 24 - 105 - Luteal Phase 0.6 - 20 Postmenopausal females 15 - 62 12 Because ethnic data is not always [...] 15-29 5 Kidney failure <15 (or dialysis) 13 Test Performed by: [facility] [employer] [facility] [place] [address] 14 Test Performed by: [facility] [employer] [facility] [place] [address] 15 REFERENCE VALUE <30.0 (Negative) Test Performed by: [facility] [place] [place] [address] 16 Because ethnic data is not always readily [...] dialysis) Procedures Date Code Description Status 02/16/2019 56558 Carpal Tunnel Release Completed 02/16/2019 28948 Carpal Tunnel Release Completed Medical Devices Description No Information Available Encounters Type Date Location Provider Dx Diagnosis Office Visit 02/04/2019 [facility] Bette Handley, G56.01 [facility] Visit 01/28/2019 Rheumatology Rudy Arreguin M32.9 Systemic lupus 10:40a [facility] erythematosus, unspecified E83.51 Hypocalcemia Z79.899 Other terminal carman (current) drug therapy G56.01 Carpal tunnel syndrome, right upper limb Office Visit 12/16/2018 Rheumatology Rudy M32.9 Systemic lupus 11:20a [facility] Arreguin M.D. erythematosus, unspecified M25.572 Pain in left ankle and joints of left foot Z79.899 Other terminal carman (current) drug therapy B37.9 Candidiasis, unspecified Office 11/26/2018 [facility] Louie G43.109 Migraine with Visit 1:00p [facility], N.P. aura, not intractable, w/o status migrainosus M32.9 Systemic lupus erythematosus, unspecified R20.2 Paresthesia of skin Assessments Date Code Description Provider 03/31/2019 M54.5 Low back pain Rudy Arreguin M.D. 03/31/2019 M32.9 Systemic lupus erythematosus, unspecified Rudy Arreguin M.D. 03/31/2019 Z79.899 Other terminal carman (current) drug therapy Rudy Arreguin M.D. 03/31/2019 N92.6 Irregular menstruation, unspecified Rudy Arreguin M.D. 03/31/2019 E16.2 Hypoglycemia, unspecified Rudy Arreguin M.D. 03/22/2019 G56.01 Carpal tunnel syndrome, right upper limb Bette Handley M.D. 03/22/2019 Z47.89 Encounter for other orthopedic aftercare Bette Handley M.D. 02/24/2019 G56.01 Carpal tunnel syndrome, right upper limb Cadence Bitting, AMIRAH-C 02/24/2019 Z48.02 Encounter for removal of sutures Cadence Anthony, RPA-C 02/16/2019 G56.01 Carpal tunnel syndrome, right upper limb Cadence Bitting, RPA-C 02/16/2019 G56.01 Carpal tunnel syndrome, right upper limb Bette Handley M.D. 02/04/2019 G56.01 Carpal tunnel syndrome, right upper limb Bette Handley M.D. 01/28/2019 M32.9 Systemic lupus erythematosus, unspecified Rudy Arreguin M.D. 01/28/2019 E83.51 Hypocalcemia Rudy Arreguin M.D. 01/28/2019 Z79.899 Other terminal carman (current) drug therapy Rudy Arreguin M.D. 01/28/2019 G56.01 Carpal tunnel syndrome, right upper limb Rudy Arreguin M.D. 12/16/2018 M32.9 Systemic lupus erythematosus, unspecified Rudy Arreguin M.D. 12/16/2018 M25.572 Pain in left ankle and joints of left foot Rudy Arreguin M.D. 12/16/2018 Z79.899 Other terminal carman (current) drug therapy Rudy Arreguin M.D. 12/16/2018 B37.9 Candidiasis, unspecified Rudy Arreguin M.D. 11/26/2018 G43.109 Migraine with aura, not intractable, without Louie Fine, N.P. status migrainosus 11/26/2018 M32.9 Systemic lupus erythematosus, unspecified Louie Fine, N.P. 11/26/2018 R20.2 Paresthesia of skin Louie Fine, N.P. Plan of Treatment Future Appointment(s):04/29/2019 1:40 pm - Rudy Arreguin M.D. at [facility]03/31/2019 - Rudy Arreguin M.D.M54.5 Low back painM32.9 Systemic lupus erythematosus, unspecifiedNew Labs:Drug Abuse W/Confirm, Ur, Ordered: 03/31/19Z79.899 Other terminal carman (current) drug [id number] Irregular menstruation, unspecifiedComments:Please also follow up with your primary care doctor for these issuesReferral:Rosetta Esquivel MD, bilingual student tutor/Phys/LpbsnU46.2 Hypoglycemia, unspecifiedComments:Complex carbohydrates and proteins are important in the diet. They are a basic source of energy. Proteins are made of amino acids that the body needs for growth and good health. Foods from animal sources contain protein, but so do legumes, nuts and seeds. Most food protein can be converted into glucose by the body, but since this process takes some time, the glucose gets into the bloodstream at a slower, more consistent pace.That is why people with reactive hypoglycemia should eat complex carbohydrates and protein for their energy needs, instead of simple carbohydrates.Choose high fiber foods. Fiber is the indigestible part of plants. Insoluble fiber, such as wheat bran, does not dissolve in water. It adds bulk to the stool and causes it to pass through the intestine more quickly. Soluble fiber does dissolve in water, forming a sticky gel. It is found in the fibrous coatings of foods such as legumes, oat products, and pectin found in fruit. Soluble fiber delays stomach emptying, digestion, and absorption of glucose. Therefore, it helps to prevent hypoglycemia symptoms between meals. When making fruit choices, choose whole fresh fruits or those canned without added sugar instead of fruit juice. The added fiber helps to slow down the absorption of sugar.Size and frequency of meals is very important for managing hypoglycemia. The body really can??t tell the difference between the glucose in a candy bar and the glucose in a whole grain roll. The object is to manage the diet so glucose is released into the bloodstream slowly and evenly. Many people skip meals, and this is certainly not good for people with reactive hypoglycemia. Start out with three well-balanced meals. Include a small mid-morning, afternoon, and evening snack. If symptoms are not relieved, it may be necessary to divide the daily food intake into five or six smaller, well-balanced meals evenly spaced throughout the day. Include an evening snack. Choose more complex carbohydrates over concentrated sweets, and try to includesome insoluble fiber and protein with each meal; also minimize caffeine use.Follow up:Follow up in 4 weeks or sooner if needed Functional Status Description No Information Available Mental Status Description No Information Available Referrals Refer to Reason for Referral Status Appt Date Rosetta Esquivel MD Please evaluate patient with severe back pain, Sent history of irregular cycles; she will need a sensitive evaluation and examination given prior trauma [address] [facility], [place] [address] [phone] Bette Handley M.D. Please evaluate for carpal tunnel release Sent [address] [facility] [place] [address] [phone]
[2019-04-30 07:47] VITALS: BP 138/78
--- NOTE | 2019-04-30 08:23 | UC ---
Knee Pain HPI - HPI Summary HPI Summary: 28 yo woman with lupus, who comes in today due to onset of right knee pain noted when she got up at 02:30 this morning to go to the bathroom. Aware of "popping" in the knee and thought that it was out of joint. She has had no recent increase in activity or trauma, overall not very active. One of her biggest concerns is the grinding sound which her knee cap is making. She has numerous joint pains related to lupus, but what she has in her knee at this time is not typical, and is unike anything which she has had before. She has not taken her morning pain medications but thought that she should come for assessment instead. She is currently out of her percocet and ondansetron and is awaiting renewal from Dr. Arreguin's office. - History of Current Complaint Chief Complaint: UCLowerExtremity Stated Complaint: KNEE PAIN Time Seen by Provider: 04/30/19 08:14 Hx Obtained From: Patient Hx Last Menstrual Period: 11/06/18 Onset/Duration: Sudden Onset, Lasting Hours Severity Initially: Moderate Severity Currently: Moderate Pain Intensity: 9 Character: Sharp, Aching Aggravating Factor(s): Movement, Weight Bearing Alleviating Factor(s): Rest, Nothing Associated Signs And Symptoms: Positive: Negative Able to Bear Weight: Yes - Risk Factors Septic Arthritis Risk Factor: Negative Gout Risk Factor: Negative - Allergies/Home Medications Allergies/Adverse Reactions: Allergies Allergy/AdvReac Type Severity Reaction Status Date / Time sulfamethoxazole Allergy Mild Rash Verified 04/30/19 07:47 [From Bactrim] trimethoprim [From Bactrim] Allergy Mild Rash Verified 04/30/19 07:47 Home Medications: Home Medications Cyanocobalamin (Vitamin B-12) [B-12] 1 tab PO DAILY 04/30/19 [History Confirmed 04/30/19] Folic Acid TAB* [Folvite TAB*] 1 tab PO DAILY 04/30/19 [History Confirmed ] Prazosin 1 mg CAP [Minipress 1 mg CAP] 3 mg PO QPM 04/30/19 [History Confirmed 04/30/19] Pseudoephedrine HCl [Sudafed] 1 tab PO ONCE 04/30/19 [History Confirmed 04/30/19 ] PMH/Surg Hx/FS Hx/Imm Hx - Additional Past Medical History Additional PMH: Systemic lupus. 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 Skin: Positive: Negative Eyes: Positive: Negative ENT: Positive: Negative Respiratory: Positive: Negative. Negative: Shortness Of Breath, Cough Cardiovascular: Negative: Palpitations, Chest Pain Gastrointestinal: Positive: Nausea - commonly has nausea, some reflux, possibly related to medications. Genitourinary: Negative: Dysuria, Hematuria, Frequency Motor: Positive: Decreased ROM - in the right knee. Musculoskeletal: Positive: Arthralgia, Myalgia Neurological: Positive: Headache - hx of migraine Psychological: Positive: Other - hx of PTSD, chronic insomnia and depression. Currently struggling with poor sleep quality, not responding to efforts of mental health provider or to med trials. Is Patient Immunocompromised?: Yes - possibly Physical Exam Triage Information Reviewed: Yes Appearance: Pain Distress - mild to moderate, Obese, Other: - Labile mood and affect, with some irritability. Goes from tears to repose quickly. Voices much frustration with medical system and receiving care. Vital Signs: Initial Vital Signs Temp 97.9 F 04/30/19 07:41 Pulse 72 04/30/19 07:41 Resp 15 04/30/19 07:41 BP 138/78 04/30/19 07:41 Pulse Ox 100 04/30/19 07:41 Eye Exam: Normal ENT: Positive: Pharynx normal Neck: Positive: Supple, Nontender, No Lymphadenopathy Respiratory: Positive: Lungs clear, Normal breath sounds Cardiovascular: Positive: RRR, No Murmur Musculoskeletal Exam: Other - No redness warmth or swelling noted. TTP in the patella and patellar tendon. Musculoskeletal: Positive: Strength Intact, ROM Limited @ - right knee without effusion, with medial joint line tenderness. There is patellar crepitus with knee flexion, with decreased rom secondary to pain. Cannot assess stability due to body habit. Neurological: Positive: Alert, Muscle Tone Normal Psychological Exam: Normal Skin Exam: Normal Knee Pain Course/Dx - Course Course Of Treatment: Discussed pain control. She has not taken her medications today and is frustrated that she is out of her percocet, which she takes daily, and is prescribed by Dr Arreguin. She also uses ondansetron for nausea. Offered toradol which she declined due to a needle phobia. She has not taken her nsaid but states that it is not effective. She uses daily gabapentin, Lyrica and topical lidocaine. She is distressed about work absenteeism and is concerned that she has a presentation today. Offered her hydrocodone and ondansetron which she accepted. - Differential Dx/Diagnosis Differential Diagnosis/HQI/PQRI: Contusion, Internal Derangement Of Knee, Patellofemoral Syndrome, Sprain, Strain Provider Diagnosis: Patellofemoral arthralgia of right knee Discharge ED - Sign-Out/Discharge Documenting (check all that apply): Patient Departure All imaging exams completed and their final reports reviewed: No Studies - Discharge Plan Condition: Stable Disposition: HOME Patient Education Materials: Patellofemoral Pain Syndrome (ED) Referrals: Sonali Pro MD [Primary Care Provider] - Additional Instructions: The crackle in your knee is consistent with a change in the knee cap called Patellofemoral syndrome. I suggest that you ice your knee and take your meloxicam. Follow up with Dr. Arreguin's office regarding your prescription for pain medications and zofran, and please call Janice Cheng regarding management of your insomnia. - Billing Disposition and Condition Condition: STABLE Disposition: Home
[2019-04-30] MEDS ORDERED: Ondansetron ODT TAB* 4 MG PO ONE (08:41)
[2019-04-30] MEDS ORDERED: HYDROcodone/ACETAMIN 5-325 MG* 1 TAB PO ONE (08:42)
== END 2019-04-30 09:01 | disposition home or self-care (01) ==
LOC: UCEAST 07:37
DX: M25.561 Pain in right knee (principal); R11.0 Nausea; F51.04 Psychophysiologic insomnia; F32.9 Major depressive disorder, single episode, unspecified; E66.9 Obesity, unspecified; M32.9 Systemic lupus erythematosus, unspecified; F43.10 Post-traumatic stress disorder, unspecified; F41.9 Anxiety disorder, unspecified; Z88.2 Allergy status to sulfonamides; Z79.899 Other long term (current) drug therapy
CPT/HCPCS: 99212; A9270-GY; G0463

== ENCOUNTER 2019-06-09 11:54 | Day surgery (SDC) | payer OTHER ==
[~2019-06-09 11:54] MED LIST changes: -Buffered Lidocaine 1% SYRIN* 1 ML/SYRINGE INTRADERM ONE; -Dexamethasone IV* 4 MG/ML 1 ML (4 MG) IV SLOW PU ONE; -Famotidine IV* 10 MG/ML 2 ML (20 mg) IV ONE; -Lactated Ringers 1000 ML Bag* 1,000 ML IV SCH; +Naloxone* 0.4 MG/ML 1 ML VIAL IV PRN; +Ondansetron INJ* 2 MG/ML VIAL IV PRN; +PROCHLORPERAZINE INJ 5 MG/ML 2 ML VIAL IV PRN
[2019-06-09] MEDS ORDERED: Midazolam* 1 MG/ML 5 ML VIAL (5 MG) ONE (13:28)
[2019-06-09] MEDS ORDERED: HYDROmorphone INJ1* 1 MG/ML SYRINGE ONE ×2 (13:28→15:02)
[2019-06-09] MEDS ORDERED: Propofol* 10 MG/ML 20 ML BTL ONE (13:28)
[2019-06-09] MEDS ORDERED: Ondansetron INJ* 2 MG/ML VIAL ONE (14:02)
[2019-06-09] MEDS ORDERED: Dexamethasone IV* 4 MG/ML 1 ML (4 MG) ONE (14:02)
[2019-06-09] MEDS ORDERED: oxyCODONE/Acetamin 5/325 MG* TAB PO PRN (14:36)
[2019-06-09] MEDS ORDERED: Lactated Ringers 1000 ML Bag* 1,000 ML IV SCH (15:00)
[2019-06-09] MEDS: HYDROmorphone INJ1* 1 MG/ML SYRINGE IV PRN ×2 (15:03→15:09)
[2019-06-09 16:06] VITALS: BP 124/84
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
[2019-06-10 12:37] LABS: Chlamydia trachomatis NAA Negative (Negative); Neisseria gonorrhoeae (GC) NAA Negative (Negative)
[2019-06-10 12:52] LABS: Trichomonas vag NAA Female Negative (Negative)
== END 2019-06-09 16:10 | disposition home or self-care (01) ==
LOC: OR 11:54
PROVIDERS: ATTEND Obstetrics & Gynecology
DX: N92.1 Excessive and frequent menstruation with irregular cycle (principal); N84.0 Polyp of corpus uteri; Z12.4 Encounter for screening for malignant neoplasm of cervix; Z91.410 Personal history of adult physical and sexual abuse; M32.9 Systemic lupus erythematosus, unspecified; Z79.899 Other long term (current) drug therapy
CPT/HCPCS: 87491; 87591; 87624; 87661; 88175; 88305; G0145; J1100; J1170; J2250; J2405; J2704